=== PATIENT | female | born 1990 | race Caucasian/White ===

== ENCOUNTER 2016-10-15 11:10 | Inpatient (IN) | payer BC ==
[~2016-10-15] VITALS: Ht 162.6 cm; Wt 70.0 kg
[2016-10-15 16:28] VITALS: BP 110/57; RESP 18
[2016-10-15 19:56] VITALS: BP 113/59; RESP 20
[2016-10-15] MEDS ORDERED: CEFTRIAXONE 1 GM/50 ML (PMX) 50 ML IVPB SCH (20:30)
[2016-10-15] MEDS: DEXTROSE 5%-0.9% NACL 1,000 ML IV SCH (21:39)
[2016-10-15] MEDS: ONDANSETRON 4 MG INJ IV PRN (23:32)
[2016-10-15] MEDS: LEVOFLOXACIN 500MG/D5W (PMX) 100 ML IVPB SCH (23:32)
[2016-10-15] MEDS: ACETAMINOPHEN 325 MG TAB PO PRN (23:32)
--- NOTE | 2016-10-16 00:04 | RADRPT ---
PROCEDURE: MRCP. CLINICAL INDICATION: Abdominal pain, gallstone. TECHNIQUE: An MRCP was performed without intravenous contrast. Multiplanar multi sequence imaging was performed on a 3.0 Elidia MRI scanner. MIP reformats of the biliary tree were generated. COMPARISON: None. FINDINGS: The gallbladder is filled with gallstones. No gallbladder wall thickening or pericholecystic inflam mation is identified. There is no intrahepatic biliary ductal dilatation. The common bile duct is borderline dilated (6 mm). A 4 mm mildly T2 hypointense focus is seen within the distal most common bile duct, possibly an obstructing stone. The pancreatic duct is not dilated. The liver, spleen, adrenal glands, and kidneys are unremarkable. No ascites or lymphadenopathy is identified. IMPRESSION: 1. Gallstone filled gallbladder without evidence of cholecystitis. 2. Borderline dilated common bile duct (6 mm). A 4 mm mildly T2 hypointense focus within the dista l most common bile duct is nonspecific but might represent an obstructing biliary stone. This could be further evaluated with ERCP if clinically warranted. 3. No pancreatic ductal dilatation. RPTAT: HTAR .Daniel Mcclellan MD, Date Time Electronically viewed and signed by .Daniel Mcclellan MD, on 10/16/2016 00:03 .R/
[2016-10-16 02:58] VITALS: BP 97/52; RESP 19
[2016-10-16] MEDS ORDERED: CALC500T91 PO (05:08)
[2016-10-16] MEDS ORDERED: PRED2.5T3 PO (05:08)
[2016-10-16] MEDS ORDERED: HYDR200T5 PO (05:08)
[2016-10-16] MEDS ORDERED: IBUP200C PO (05:08)
[2016-10-16] MEDS ORDERED: enbrel (05:08)
[2016-10-16] MEDS: PANTOPRAZOLE 40 MG INJ IV SCH (05:35)
[2016-10-16 06:49] LABS: BASOPHILS % 0.5 % (0.0-2.0); EOSINOPHILS # 0.1 10^3/ul (0.0-0.5); EOSINOPHILS % 3.1 % (0.0-7.0); HEMATOCRIT 34.8 % (37.0-47.0); HEMOGLOBIN 11.3 g/dl (12.0-16.0); LYMPHOCYTES # 1.4 10^3/ul (0.8-2.9); LYMPHOCYTES % 35.8 % (15.0-51.0); MEAN CORPUSCULAR HEMOGLOBIN 30.1 pg (29.0-33.0); MEAN CORPUSCULAR HGB CONC 32.5 g/dl (32.0-37.0); MEAN CORPUSCULAR VOLUME 92.8 fl (82.0-101.0); MEAN PLATELET VOLUME 10.5 fl (7.4-10.4); MONOCYTE # 0.6 10^3/ul (0.3-0.9); MONOCYTES % 14.3 % (0.0-11.0); NEUTROPHIL # 1.8 10^3/ul (1.6-7.5); PLATELET COUNT 182 10^3/UL (140-415); RED BLOOD COUNT 3.75 10^6/ul (4.20-5.40); RED CELL DISTRIBUTION WIDTH 12.7 % (11.5-14.5); WHITE BLOOD COUNT 3.9 10^3/ul (4.8-10.8)
[2016-10-16 07:08] VITALS: BP 109/52; RESP 18
[2016-10-16 07:39] LABS: ALBUMIN 3.6 g/dl (3.3-4.9); ALBUMIN/GLOBULIN RATIO 1.05; BILIRUBIN,INDIRECT 1.2 mg/dl (0-1.1); BILIRUBIN,TOTAL 1.2 mg/dl (0.2-1.3); CALCIUM 8.3 mg/dl (8.4-10.2); CREATININE 0.67 mg/dl (0.44-1.00); POTASSIUM 4.2 mmol/L (3.5-5.1)
[2016-10-16] MEDS: HYDROXYCHLOROQUINE 200 MG TAB PO SCH ×2 (09:00→10:01)
[2016-10-16] MEDS: predniSONE 2.5 MG TAB PO SCH ×2 (09:00→10:01)
[2016-10-16] MEDS: DEXTROSE 5%-0.9% NACL 1,000 ML IV SCH ×2 (10:48→17:55)
--- NOTE | 2016-10-16 11:02 | CONS ---
Date/Time of Note Date/Time of Note DATE: 10/16/16 TIME: 10:26 Assessment/Plan Assessment/Plan Chief Complaint/Hosp Course 1. Cholelithiasis without cholecystitis: elevated LFT's -lap ad 2. Possible choledocholithiasis: MRI: A 4 mm mildly T2 hypointense focus within the distal most common bile duct is nonspecific but might represent an obstructing biliary stone -ercp 3. Abdominal pain: 2/2 above -pain management -as above 4. Transaminitis 2/2 above -as above 5. Overweight: BMI: 27 -lifestyle/diet modification 6. Hypocalcemia: -replete and monitor 7. Normocytic anemia: no acute bleed noted -monitor and transfuse as needed 8. Rheumatoid arthritis -cont meds Patient seen and examined in collaboration with Dr. Aaron White. Problems: Consultation Date/Type/Reason Admit Date/Time Oct 15, 2016 at 16:23 Date of Consultation: Oct 16, 2016 Type of Consultation: surgical Reason for Consultation cholelithiasis Hx of Present Illness Karin Her is a 26 yo woman who was transferred from [place]. She presents with complaints of sharp right upper quadrant pain. The pain is constant radiating to the back. Associated symptoms include nausea/vomiting multiple times, yellow/green emesis and subjective fevers. Denies hematemesis, chills. She states that she has had similar pain for the past 2 years, a few times yearly. This episode however was extremely painful and she decided to seek emergency help. MRI and ultrasound show gallstone filled gallbladder without evidence of cholecystitis. General surgery was called to evaluate. Constitutional: febrile Eyes: No visual change ENT: No bleeding Respiratory: No cough, No shortness of breath Cardiovascular: No chest pain Gastrointestinal: constipation, nausea, pain, vomiting Genitourinary: No bleeding, No hematuria Musculoskeletal: No back pain Skin: skin lesions Neurologic: No confusion, No headache, No seizure Psychological: No confusion Immunologic: No pruritis, No urticaria Past Medical History 1. Overweight 2. Rheumatoid Arthritis 3.Raynaud's syndrome 4. Cholelithiasis 5. shingles Past Surgical History Past Surgical Hx: no surgical history Family History Significant Family History: no pertinent family hx Social History Alcohol Use: occasionally Smoking Status: Never smoker Drug Use: none Exam/Review of Systems Vital Signs Vitals Vital Signs Date Time Temp Pulse Resp B/P Pulse Ox O2 Delivery O2 Flow Rate FiO2 10/16/16 07:08 98.4 73 18 109/52 100 Intake and Output 10/15/16 10/15/16 10/16/16 15:00 23:00 07:00 Intake Total 300 ml Balance 300 ml Exam Constitutional: alert, oriented Psych: nl mood/affect Head: atraumatic, normocephalic ENMT: mucosa pink and moist Neck: non-tender, supple Respiratory: normal air movement Cardiovascular: nl pulses, regular rate and rhythm Gastrointestinal: bowel sounds (x4), distended (min), rebound or guarding (min) , tender Genitourinary - Female: No CVA tenderness Musculoskeletal: nl gait and stance Extremities: normal pulses, No edema Neurological: nl mental status, nl speech, nl strength Skin: No rash or lesions Results Result Diagram: 10/16/1651910/16/16 0520 Results 24 hrs Laboratory Tests Test 10/16/16 05:20 White Blood Count 3.9 L Red Blood Count 3.75 L Hemoglobin 11.3 L Hematocrit 34.8 L Mean Corpuscular Volume 92.8 Mean Corpuscular Hemoglobin 30.1 Mean Corpuscular Hemoglobin Concent 32.5 Red Cell Distribution Width 12.7 Platelet Count 182 Mean Platelet Volume 10.5 H Neutrophils % 46.0 Lymphocytes % 35.8 Monocytes % 14.3 H Eosinophils % 3.1 Basophils % 0.5 Nucleated Red Blood Cells % 0.0 Neutrophils # 1.8 Lymphocytes # 1.4 Monocytes # 0.6 Eosinophils # 0.1 Basophils # 0.0 Nucleated Red Blood Cells # 0.0 Sodium Level 142 Potassium Level 4.2 Chloride Level 105 Carbon Dioxide Level 25 Anion Gap 16 Blood Urea Nitrogen 7 Creatinine 0.67 Glucose Level 82 Calcium Level 8.3 L Total Bilirubin 1.2 Direct Bilirubin 0.00 Indirect Bilirubin 1.2 H Aspartate Amino Transf (AST/SGOT) 80 H Alanine Aminotransferase (ALT/SGPT) 130 H Alkaline Phosphatase 67 Total Protein 7.0 Albumin 3.6 Globulin 3.40 H Albumin/Globulin Ratio 1.05 Medications Medications Current Medications Dextrose/Sodium Chloride (D5-NS) 1,000 ml @ 70 mls/hr [id number] IV Last administered on 10/15/16t 21:39; Admin Dose 70 MLS/HR; Start 10/15/16 at 20:30 Pantoprazole (Protonix Iv) 40 mg DAILY@06 IV Last administered on 10/16/16 05: 35; Admin Dose 40 MG; Start 10/16/16 at 06:00 Ondansetron HCl (Zofran Inj) 4 mg Q4H PRN IV NAUSEA AND/OR VOMITING Last administered on 10/15/16 23:32; Admin Dose 4 MG; Start 10/15/16 at 20:30 Morphine Sulfate (morphine) 2 mg Q4H PRN IV PAIN; Start 10/15/16 at 20:30 Acetaminophen (Tylenol Tab) 650 mg Q6H PRN PO PAIN AND OR ELEVATED TEMP Last administered on 10/15/16 23:32; Admin Dose 650 MG; Start 10/15/16 at 20:30 Prednisone (Prednisone) 2.5 mg DAILY PO Last administered on 10/16/16 10:01; Admin Dose 2.5 MG; Start 10/16/16 at 09:00 Hydroxychloroquine Sulfate 200 mg 200 mg DAILY PO Last administered on 10:01; Admin Dose 200 MG; Start 10/16/16 at 09:00 Levofloxacin/ Dextrose (Levaquin 500mg/ D5W 100 ml (Pmx)) 100 ml @ 100 mls/hr Q24H IVPB Last administered on 10/15/16 23:32; Admin Dose 100 MLS/HR; Start at 22:30 YUSEF SHAVER NP Oct 16, 2016 10:36
--- NOTE | 2016-10-16 13:37 | QN ---
Documentation Comment [id number] PEARL SEAMAN MD Oct 16, 2016 13:37
[2016-10-16 14:02] VITALS: BP 97/55; RESP 18
[2016-10-16 15:19] LABS: INR 1.07; PROTIME 13.9 Sec (12.2-14.2); PT RATIO 1.1
--- NOTE | 2016-10-16 18:17 | CONS ---
Date/Time of Note Date/Time of Note DATE: 10/16/16 TIME: 18:14 Assessment/Plan Assessment/Plan Additional Assessment/Plan 1. Bile duct stone 2. Abdominal pain secondary to bile duct stone 3. Abnormal LFT 4. Mild anemia 5. Rheumatoid arthritis Plan IV fluid Pain management IV antibiotic ERCP when GI lab can accommodate. Consultation Date/Type/Reason Admit Date/Time Oct 15, 2016 at 16:23 Reason for Consultation Bile duct stone and abdominal pain Hx of Present Illness 86-year-old female [facility] pain confined to the right upper quadrant associated with nausea and vomiting. No GI bleeding no chest pain no shortness of breath no fever no chills. Patient was originally at [facility] emergency room that she was stabilized. Patient was subsequently transferred to [facility]. She had MRI done which showed 4 7 mm stone in the bile duct so GI consult was called and patient also had abnormal LFT and continues to have pain in the right upper quadrant. There was no evidence of acute cholecystitis at this point Constitutional: febrile Eyes: No visual change ENT: No bleeding Respiratory: No cough, No shortness of breath Cardiovascular: No chest pain Gastrointestinal: constipation, nausea, pain, vomiting Genitourinary: No bleeding, No hematuria Musculoskeletal: No back pain Skin: skin lesions Neurologic: No confusion, No headache, No seizure Psychological: nl mood/affect Immunologic: No pruritis, No urticaria Past Surgical History Past Surgical Hx: no surgical history Social History Alcohol Use: occasionally Smoking Status: Never smoker Drug Use: none Exam/Review of Systems Vital Signs Vitals Vital Signs Date Time Temp Pulse Resp B/P Pulse Ox O2 Delivery O2 Flow Rate FiO2 10/16/16 14:02 98.6 78 18 97/55 100 Intake and Output 10/15/16 10/15/16 10/16/16 15:00 23:00 07:00 Intake Total 300 ml Balance 300 ml Exam Constitutional: alert, oriented, well developed Psych: nl mood/affect, no complaints Head: atraumatic, normocephalic Eyes: EOMI, PERRL, nl conjunctiva, nl lids, nl sclera ENMT: nl external ears & nose, nl lips & teeth, nl nasal mucosa & septum Neck: non-tender, supple Respiratory: clear to auscultation, normal air movement Cardiovascular: nl pulses, regular rate and rhythm Gastrointestinal: nl liver, spleen, non-tender, soft Musculoskeletal: nl extremities to inspection, nl gait and stance Extremities: normal pulses Neurological: [employer] II-XII intact, nl mental status, nl speech, nl strength Skin: nl turgor, No rash or lesions Lymph: nl lymph nodes Results Result Diagram: 10/16/1620 10/16/16 0520 Results 24 hrs Laboratory Tests Test 10/16/16 05:20 10/16/16 13:57 White Blood Count 3.9 L Red Blood Count 3.75 L Hemoglobin 11.3 L Hematocrit 34.8 L Mean Corpuscular Volume 92.8 Mean Corpuscular Hemoglobin 30.1 Mean Corpuscular Hemoglobin Concent 32.5 Red Cell Distribution Width 12.7 Platelet Count 182 Mean Platelet Volume 10.5 H Neutrophils % 46.0 Lymphocytes % 35.8 Monocytes % 14.3 H Eosinophils % 3.1 Basophils % 0.5 Nucleated Red Blood Cells % 0.0 Neutrophils # 1.8 Lymphocytes # 1.4 Monocytes # 0.6 Eosinophils # 0.1 Basophils # 0.0 Nucleated Red Blood Cells # 0.0 Sodium Level 142 Potassium Level 4.2 Chloride Level 105 Carbon Dioxide Level 25 Anion Gap 16 Blood Urea Nitrogen 7 Creatinine 0.67 Glucose Level 82 Calcium Level 8.3 L Total Bilirubin 1.2 Direct Bilirubin 0.00 Indirect Bilirubin 1.2 H Aspartate Amino Transf (AST/SGOT) 80 H Alanine Aminotransferase (ALT/SGPT) 130 H Alkaline Phosphatase 67 Total Protein 7.0 Albumin 3.6 Globulin 3.40 H Albumin/Globulin Ratio 1.05 Prothrombin Time 13.9 Prothrombin Time Ratio 1.1 INR International Normalized Ratio 1.07 Medications Medications Current Medications Dextrose/Sodium Chloride (D5-NS) 1,000 ml @ 70 mls/hr [id number] IV Last administered on 10/16/16 17:55; Admin Dose 70 MLS/HR; Start 10/15/16 at 20:30 Pantoprazole (Protonix Iv) 40 mg DAILY@06 IV Last administered on 10/16/16 05: 35; Admin Dose 40 MG; Start 10/16/16 at 06:00 Ondansetron HCl (Zofran Inj) 4 mg Q4H PRN IV NAUSEA AND/OR VOMITING Last administered on 10/15/16 23:32; Admin Dose 4 MG; Start 10/15/16 at 20:30 Morphine Sulfate (morphine) 2 mg Q4H PRN IV PAIN; Start 10/15/16 at 20:30 Acetaminophen (Tylenol Tab) 650 mg Q6H PRN PO PAIN AND OR ELEVATED TEMP Last administered on 10/15/16 23:32; Admin Dose 650 MG; Start 10/15/16 at 20:30 Prednisone (Prednisone) 2.5 mg DAILY PO Last administered on 10/16/16 10:01; Admin Dose 2.5 MG; Start 10/16/16 at 09:00 Hydroxychloroquine Sulfate 200 mg 200 mg DAILY PO Last administered on 10:01; Admin Dose 200 MG; Start 10/16/16 at 09:00 Levofloxacin/ Dextrose (Levaquin 500mg/ D5W 100 ml (Pmx)) 100 ml @ 100 mls/hr Q24H IVPB Last administered on 10/15/16 23:32; Admin Dose 100 MLS/HR; Start at 22:30 MAGALY VINSON MD Oct 16, 2016 18:17
[2016-10-16 19:39] VITALS: BP 113/63; RESP 20
[2016-10-16] MEDS: LEVOFLOXACIN 500MG/D5W (PMX) 100 ML IVPB SCH (22:37)
[2016-10-17] VITALS (16 sets, daily range): BP systolic 90–140; BP diastolic 46–82; PULSE 54–64; RESP 16–20
[2016-10-17] MEDS: DEXTROSE 5%-0.9% NACL 1,000 ML IV SCH ×2 (01:06→15:24)
[2016-10-17] MEDS: PANTOPRAZOLE 40 MG INJ IV SCH (05:52)
[2016-10-17 06:43] LABS: BASOPHILS % 0.6 % (0.0-2.0); EOSINOPHILS # 0.1 10^3/ul (0.0-0.5); HEMATOCRIT 33.8 % (37.0-47.0); HEMOGLOBIN 11.2 g/dl (12.0-16.0); LYMPHOCYTES # 1.4 10^3/ul (0.8-2.9); MEAN CORPUSCULAR HEMOGLOBIN 30.4 pg (29.0-33.0); MEAN CORPUSCULAR HGB CONC 33.1 g/dl (32.0-37.0); MEAN CORPUSCULAR VOLUME 91.8 fl (82.0-101.0); MEAN PLATELET VOLUME 10.3 fl (7.4-10.4); MONOCYTE # 0.5 10^3/ul (0.3-0.9); MONOCYTES % 14.4 % (0.0-11.0); NEUTROPHIL # 1.4 10^3/ul (1.6-7.5); PLATELET COUNT 197 10^3/UL (140-415); RED BLOOD COUNT 3.68 10^6/ul (4.20-5.40); RED CELL DISTRIBUTION WIDTH 12.5 % (11.5-14.5); WHITE BLOOD COUNT 3.3 10^3/ul (4.8-10.8)
[2016-10-17 06:53] LABS: ALBUMIN 3.6 g/dl (3.3-4.9); CALCIUM 8.4 mg/dl (8.4-10.2); CREATININE 0.73 mg/dl (0.44-1.00); POTASSIUM 3.9 mmol/L (3.5-5.1); TOTAL PROTEIN 7.2 g/dl (6.1-8.1)
[2016-10-17] MEDS: HYDROXYCHLOROQUINE 200 MG TAB PO SCH (09:00)
[2016-10-17] MEDS: predniSONE 2.5 MG TAB PO SCH (09:00)
[2016-10-17] MEDS: ONDANSETRON 4 MG INJ IV PRN (09:47)
[2016-10-17] MEDS: morphine 2 MG INJ IV PRN ×2 (09:47→21:52)
--- NOTE | 2016-10-17 10:53 | PN ---
Date/Time of Note Date/Time of Note DATE: 10/17/16 TIME: 10:51 Assessment/Plan VTE Prophylaxis VTE Prophylaxis Intervention: ambulation Lines/Catheters IV Catheter Type (from Nrs): Peripheral IV Assessment/Plan Chief Complaint/Hosp Course 1. Cholelithiasis 2. choledocholithiasis 3. Anemia 4. hx rheumatoid arthritis Problems: Assessment/Plan 1.Continue Iv fluids 2. ERCP Subjective 24 Hr Interval Summary Gastrointestinal: pain Exam/Review of Systems Vital Signs Vitals Vital Signs Date Time Temp Pulse Resp B/P Pulse Ox O2 Delivery O2 Flow Rate FiO2 10/17/16 07:54 98.4 74 16 90/46 100 Intake and Output 10/16/16 10/16/16 10/17/16 15:00 23:00 07:00 Intake Total 800 ml 1160 ml Balance 800 ml 1160 ml Exam Constitutional: oriented Gastrointestinal: rebound or guarding, soft Results Result Diagram: 10/17/16 0516 10/17/16 0516 Results 24 hrs Laboratory Tests Test 10/16/16 13:57 10/17/16 05:16 Prothrombin Time 13.9 Prothrombin Time Ratio 1.1 INR International Normalized Ratio 1.07 White Blood Count 3.3 L Red Blood Count 3.68 L Hemoglobin 11.2 L Hematocrit 33.8 L Mean Corpuscular Volume 91.8 Mean Corpuscular Hemoglobin 30.4 Mean Corpuscular Hemoglobin Concent 33.1 Red Cell Distribution Width 12.5 Platelet Count 197 Mean Platelet Volume 10.3 Neutrophils % 41.0 Lymphocytes % 41.0 Monocytes % 14.4 H Eosinophils % 3.0 Basophils % 0.6 Nucleated Red Blood Cells % 0.0 Neutrophils # 1.4 L Lymphocytes # 1.4 Monocytes # 0.5 Eosinophils # 0.1 Basophils # 0.0 Nucleated Red Blood Cells # 0.0 Sodium Level 142 Potassium Level 3.9 Chloride Level 106 Carbon Dioxide Level 26 Anion Gap 14 Blood Urea Nitrogen 9 Creatinine 0.73 Glucose Level 86 Calcium Level 8.4 Total Bilirubin 1.0 Direct Bilirubin 0.00 Indirect Bilirubin 1.0 Aspartate Amino Transf (AST/SGOT) 41 Alanine Aminotransferase (ALT/SGPT) 95 H Alkaline Phosphatase 56 Total Protein 7.2 Albumin 3.6 Globulin 3.60 H Albumin/Globulin Ratio 1.00 Medications Medications Current Medications Dextrose/Sodium Chloride (D5-NS) 1,000 ml @ 70 mls/hr [id number] IV Last administered on 10/16/16 17:55; Admin Dose 70 MLS/HR; Start 10/15/16 at 20:30 Pantoprazole (Protonix Iv) 40 mg DAILY@06 IV Last administered on 10/17/16 05: 52; Admin Dose 40 MG; Start 10/16/16 at 06:00 Ondansetron HCl (Zofran Inj) 4 mg Q4H PRN IV NAUSEA AND/OR VOMITING Last administered on 10/17/16 09:47; Admin Dose 4 MG; Start 10/15/16 at 20:30 Morphine Sulfate (morphine) 2 mg Q4H PRN IV PAIN Last administered on 09:47; Admin Dose 2 MG; Start 10/15/16 at 20:30 Acetaminophen (Tylenol Tab) 650 mg Q6H PRN PO PAIN AND OR ELEVATED TEMP Last administered on 10/15/16 23:32; Admin Dose 650 MG; Start 10/15/16 at 20:30 Prednisone (Prednisone) 2.5 mg DAILY PO Last administered on 10/16/16 10:01; Admin Dose 2.5 MG; Start 10/16/16 at 09:00 Hydroxychloroquine Sulfate 200 mg 200 mg DAILY PO Last administered on 10:01; Admin Dose 200 MG; Start 10/16/16 at 09:00 Levofloxacin/ Dextrose (Levaquin 500mg/ D5W 100 ml (Pmx)) 100 ml @ 100 mls/hr Q24H IVPB Last administered on 10/16/16 22:37; Admin Dose 100 MLS/HR; Start at 22:30 CECILIA GONGORA Oct 17, 2016 10:53
--- NOTE | 2016-10-17 11:06 | PN ---
Date/Time of Note Date/Time of Note DATE: 10/17/16 TIME: 11:02 Assessment/Plan Lines/Catheters IV Catheter Type (from [facility]): Peripheral IV Assessment/Plan Chief Complaint/Hosp Course 1. Cholelithiasis without cholecystitis: elevated LFT's -lap ad 2. Possible choledocholithiasis: MRI: A 4 mm mildly T2 hypointense focus within the distal most common bile duct is nonspecific but might represent an obstructing biliary stone -ercp pending 3. Abdominal pain: 2/2 above; improving -pain management -as above 4. Transaminitis 2/2 above; improving -as above 5. Overweight: BMI: 27 -lifestyle/diet modification 6. Hypocalcemia: normalized -replete and monitor 7. Normocytic anemia: no acute bleed noted -monitor and transfuse as needed 8. Rheumatoid arthritis -cont meds Patient seen and examined in collaboration with Dr. Aaron White. Problems: Subjective 24 Hr Interval Summary Abdominal pain better. No n/v/d. No c/o stevens, fevers, chills, sob, cp, palpitations. Pending ERCP Exam/Review of Systems Vital Signs Vitals Vital Signs Date Time Temp Pulse Resp B/P Pulse Ox O2 Delivery O2 Flow Rate FiO2 10/17/16 07:54 98.4 74 16 90/46 100 Intake and Output 10/16/16 10/16/16 10/17/16 15:00 23:00 07:00 Intake Total 800 ml 1160 ml Balance 800 ml 1160 ml Exam Free Text/Dictation Constitutional: alert, oriented Psych: nl mood/affect Head: atraumatic, normocephalic ENMT: mucosa pink and moist Neck: non-tender, supple Respiratory: normal air movement Cardiovascular: nl pulses, regular rate and rhythm Gastrointestinal: bowel sounds (x4), distended (min), rebound or guarding (min) , tender Genitourinary - Female: No CVA tenderness Musculoskeletal: nl gait and stance Extremities: normal pulses, No edema Neurological: nl mental status, nl speech, nl strength Skin: No rash or lesions Results Result Diagram: 10/17/16 0516 10/17/16 0516 YUSEF SHAVER NP Oct 17, 2016 11:06
[2016-10-17] MEDS ORDERED: IOHEXOL 300MG/ML 30 ML BTL ONE (18:52)
[2016-10-17] MEDS ORDERED: MIDAZOLAM 1 MG/ML 2 ML INJ ONE (18:57)
--- NOTE | 2016-10-17 19:52 | OPR ---
Date/Time of Note Date/Time of Note DATE: 10/17/16 TIME: 19:51 Operative Report Preoperative Diagnosis Bile duct stone Postoperative Diagnosis Bile ducts stone Operation/Procedure Performed Sphincterotomy balloon sweeping and excellent drainage established Surgeon: MAGALY VINSON MD Estimated Blood Loss: none Complications: None MAGALY VINSON MD Oct 17, 2016 19:52
[2016-10-17] MEDS ORDERED: ONDANSETRON 4 MG INJ ONE (19:59)
[2016-10-17] MEDS ORDERED: LIDOCAINE 2% (SDV) 5 ML INJ ONE (19:59)
[2016-10-17] MEDS ORDERED: NEOSTIGMINE 3 MG/3 ML SYRINGE ONE (19:59)
[2016-10-17] MEDS ORDERED: GLYCOPYRROLATE 0.4 MG INJ ONE (19:59)
[2016-10-17] MEDS ORDERED: ROCURONIUM 50 MG INJ ONE (19:59)
[2016-10-17] MEDS ORDERED: PROPOFOL 20 ML ONE (19:59)
[2016-10-17] MEDS ORDERED: CIPROFLOXACIN 400MG/D5W 200 ML ONE (19:59)
[2016-10-17] MEDS: LEVOFLOXACIN 500MG/D5W (PMX) 100 ML IVPB SCH (22:15)
[2016-10-18] MEDS: DEXTROSE 5%-0.9% NACL 1,000 ML IV SCH ×3 (01:43→20:00)
[2016-10-18 02:41] VITALS: BP 122/75; RESP 18
[2016-10-18] MEDS: PANTOPRAZOLE 40 MG INJ IV SCH (05:55)
[2016-10-18 06:05] LABS: BASOPHILS % 0.2 % (0.0-2.0); HEMOGLOBIN 11.2 g/dl (12.0-16.0); LYMPHOCYTES # 1.1 10^3/ul (0.8-2.9); LYMPHOCYTES % 25.9 % (15.0-51.0); MEAN CORPUSCULAR HEMOGLOBIN 29.6 pg (29.0-33.0); MEAN CORPUSCULAR HGB CONC 32.9 g/dl (32.0-37.0); MEAN CORPUSCULAR VOLUME 89.7 fl (82.0-101.0); MEAN PLATELET VOLUME 10.3 fl (7.4-10.4); MONOCYTE # 0.4 10^3/ul (0.3-0.9); MONOCYTES % 9.9 % (0.0-11.0); NEUTROPHIL # 2.6 10^3/ul (1.6-7.5); PLATELET COUNT 168 10^3/UL (140-415); RED BLOOD COUNT 3.79 10^6/ul (4.20-5.40); RED CELL DISTRIBUTION WIDTH 12.4 % (11.5-14.5); WHITE BLOOD COUNT 4.1 10^3/ul (4.8-10.8)
[2016-10-18 06:32] LABS: CALCIUM 8.6 mg/dl (8.4-10.2); CREATININE 0.72 mg/dl (0.44-1.00); POTASSIUM 4.5 mmol/L (3.5-5.1)
[2016-10-18 07:57] VITALS: BP 93/46; RESP 20
[2016-10-18 08:38] LABS: ALBUMIN 3.1 g/dl (3.3-4.9); BILIRUBIN,INDIRECT 0.1 mg/dl (0-1.1); BILIRUBIN,TOTAL 0.1 mg/dl (0.2-1.3); TOTAL PROTEIN 5.7 g/dl (6.1-8.1)
[2016-10-18] MEDS: HYDROXYCHLOROQUINE 200 MG TAB PO SCH (09:20)
[2016-10-18] MEDS: predniSONE 2.5 MG TAB PO SCH (09:20)
--- NOTE | 2016-10-18 10:09 | PN ---
Date/Time of Note Date/Time of Note DATE: 10/18/16 TIME: 10:08 Assessment/Plan VTE Prophylaxis VTE Prophylaxis Intervention: ambulation Lines/Catheters IV Catheter Type (from Nrs): Peripheral IV Assessment/Plan Chief Complaint/Hosp Course 1. Cholelithiasis 2. choledocholithiasis, s/p Sphincterotomy 3. Anemia 4. hx rheumatoid arthritis Problems: Assessment/Plan 1. Continue current regime 2. Ambulation Subjective 24 Hr Interval Summary Gastrointestinal: pain Exam/Review of Systems Vital Signs Vitals Vital Signs Date Time Temp Pulse Resp B/P Pulse Ox O2 Delivery O2 Flow Rate FiO2 10/18/16 07:57 98.5 80 20 93/46 100 10/17/16 22:10 Nasal Cannula 2.0 Intake and Output 10/17/16 10/17/16 10/18/16 15:00 23:00 07:00 Intake Total 300 ml 450 ml Balance 300 ml 450 ml Exam Constitutional: alert, oriented Cardiovascular: regular rate and rhythm Gastrointestinal: rebound or guarding Results Result Diagram: 10/18/16 0539 10/18/16 0539 Results 24 hrs Laboratory Tests Test 10/18/16 05:39 White Blood Count 4.1 #L Red Blood Count 3.79 L Hemoglobin 11.2 L Hematocrit 34.0 L Mean Corpuscular Volume 89.7 Mean Corpuscular Hemoglobin 29.6 Mean Corpuscular Hemoglobin Concent 32.9 Red Cell Distribution Width 12.4 Platelet Count 168 Mean Platelet Volume 10.3 Neutrophils % 63.0 Lymphocytes % 25.9 Monocytes % 9.9 Eosinophils % 1.0 Basophils % 0.2 Nucleated Red Blood Cells % 0.0 Neutrophils # 2.6 Lymphocytes # 1.1 Monocytes # 0.4 Eosinophils # 0.0 Basophils # 0.0 Nucleated Red Blood Cells # 0.0 Sodium Level 142 Potassium Level 4.5 Chloride Level 103 Carbon Dioxide Level 28 Anion Gap 16 Blood Urea Nitrogen 9 Creatinine 0.72 Glucose Level 104 Calcium Level 8.6 Total Bilirubin 0.1 L Direct Bilirubin 0.00 Indirect Bilirubin 0.1 Aspartate Amino Transf (AST/SGOT) 18 Alanine Aminotransferase (ALT/SGPT) 30 Alkaline Phosphatase 42 Total Protein 5.7 #L Albumin 3.1 L Medications Medications Current Medications Dextrose/Sodium Chloride (D5-NS) 1,000 ml @ 70 mls/hr [id number] IV Last administered on 10/18/16 01:43; Admin Dose 70 MLS/HR; Start 10/15/16 at 20:30 Pantoprazole (Protonix Iv) 40 mg DAILY@06 IV Last administered on 10/18/16 05: 55; Admin Dose 40 MG; Start 10/16/16 at 06:00 Ondansetron HCl (Zofran Inj) 4 mg Q4H PRN IV NAUSEA AND/OR VOMITING Last administered on 10/17/16 09:47; Admin Dose 4 MG; Start 10/15/16 at 20:30 Morphine Sulfate (morphine) 2 mg Q4H PRN IV PAIN Last administered on 21:52; Admin Dose 2 MG; Start 10/15/16 at 20:30 Acetaminophen (Tylenol Tab) 650 mg Q6H PRN PO PAIN AND OR ELEVATED TEMP Last administered on 10/15/16 23:32; Admin Dose 650 MG; Start 10/15/16 at 20:30 Prednisone (Prednisone) 2.5 mg DAILY PO Last administered on 10/18/16 09:20; Admin Dose 2.5 MG; Start 10/16/16 at 09:00 Hydroxychloroquine Sulfate 200 mg 200 mg DAILY PO Last administered on 09:20; Admin Dose 200 MG; Start 10/16/16 at 09:00 Levofloxacin/ Dextrose (Levaquin 500mg/ D5W 100 ml (Pmx)) 100 ml @ 100 mls/hr Q24H IVPB Last administered on 10/17/16 22:15; Admin Dose 100 MLS/HR; Start at 22:30 CECILIA GONGORA Oct 18, 2016 10:09
--- NOTE | 2016-10-18 10:13 | PN ---
Date/Time of Note Date/Time of Note DATE: 10/18/16 TIME: 10:01 Assessment/Plan Lines/Catheters IV Catheter Type (from [facility]): Peripheral IV Assessment/Plan Chief Complaint/Hosp Course 1. Cholelithiasis without cholecystitis; patient asymptomatic currently and would prefer to do procedure outpatient -lap ad outpatient -may be dc'd per medical team 2. Choledocholithiasis: s/p ERCP with sphincterotomy 10/17; pain improved 3. Abdominal pain: 2/2 above; improving -pain management -as above 4. Transaminitis 2/2 above; improving -as above 5. Overweight: BMI: 27 -lifestyle/diet modification 6. Hypocalcemia: normalized -replete and monitor 7. Normocytic anemia: no acute bleed noted -monitor and transfuse as needed 8. Rheumatoid arthritis -cont meds Patient seen and examined in collaboration with Dr. Aaron White. Problems: Subjective 24 Hr Interval Summary No fevers. Feels better. s/p ERCP w sphincterotomy yesterday. Tolerating liquid diet. Min abdominal discomfort. No stevens, dizziness, cp, palpitations, n/v/d, fevers, chills, dysuria. Exam/Review of Systems Vital Signs Vitals Vital Signs Date Time Temp Pulse Resp B/P Pulse Ox O2 Delivery O2 Flow Rate FiO2 10/18/16 07:57 98.5 80 20 93/46 100 10/17/16 22:10 Nasal Cannula 2.0 Intake and Output 10/17/16 10/17/16 10/18/16 15:00 23:00 07:00 Intake Total 300 ml 450 ml Balance 300 ml 450 ml Exam Free Text/Dictation Constitutional: alert, oriented Psych: nl mood/affect Head: atraumatic, normocephalic ENMT: mucosa pink and moist Neck: non-tender, supple Respiratory: normal air movement Cardiovascular: nl pulses, regular rate and rhythm Gastrointestinal: bowel sounds (x4), distended (min), no rebound or guarding, min tender Genitourinary - Female: No CVA tenderness Musculoskeletal: nl gait and stance Extremities: normal pulses, No edema Neurological: nl mental status, nl speech, nl strength Skin: No rash or lesions Results Result Diagram: 10/18/16 0539 10/18/16 0539 YUSEF SHAVER NP Oct 18, 2016 10:11
[2016-10-18] MEDS ORDERED: BISACODYL (EC) 5 MG TAB PO ONE (11:30)
--- NOTE | 2016-10-18 12:19 | CONS ---
Date/Time of Note Date/Time of Note DATE: 10/18/16 TIME: 12:18 Assessment/Plan Assessment/Plan Chief Complaint/Hosp Course 86-year-old female [facility] abdominal pain confined to the right upper quadrant associated with nausea and vomiting. No GI bleeding no chest pain no shortness of breath no fever no chills. Patient was originally at [facility] emergency room that she was stabilized. Patient was subsequently transferred to [facility]. She had MRI done which showed 4 7 mm stone in the bile duct so GI consult was called and patient also had abnormal LFT and continues to have pain in the right upper quadrant. There was no evidence of acute cholecystitis at this point Problems: Additional Assessment/Plan Additional Assessment/Plan 1. Bile duct stone 2. Abdominal pain secondary to bile duct stone 3. Abnormal LFT 4. Mild anemia 5. Rheumatoid arthritis 6. Status post sphincterotomy with excellent drainage Plan Advance diet Surgery lap ad as per surgeon. Patient definitely has a cholecystitis based on my ERCP finding cystic duct was completely blocked Consultation Date/Type/Reason Admit Date/Time Oct 15, 2016 at 16:23 Initial Consult Date 10/16/16 Type of Consultation: surgical 24 HR Interval Summary Constitutional: improved Exam/Review of Systems Vital Signs Vitals Vital Signs Date Time Temp Pulse Resp B/P Pulse Ox O2 Delivery O2 Flow Rate FiO2 10/18/16 07:57 98.5 80 20 93/46 100 10/17/16 22:10 Nasal Cannula 2.0 Intake and Output 10/17/16 10/17/16 10/18/16 15:00 23:00 07:00 Intake Total 300 ml 450 ml Balance 300 ml 450 ml Exam Constitutional: alert, oriented, well developed Psych: nl mood/affect, no complaints Head: atraumatic, normocephalic Eyes: EOMI, PERRL, nl conjunctiva, nl lids, nl sclera ENMT: nl external ears & nose, nl lips & teeth, nl nasal mucosa & septum Neck: non-tender, supple Respiratory: clear to auscultation, normal air movement Cardiovascular: nl pulses, regular rate and rhythm Gastrointestinal: nl liver, spleen, non-tender, soft Musculoskeletal: nl extremities to inspection, nl gait and stance Extremities: normal pulses 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, nl mental status, nl speech, nl strength Skin: nl turgor, No rash or lesions Lymph: nl lymph nodes Results Result Diagram: 10/18/16 0539 10/18/16 0539 Results 24 hrs Laboratory Tests Test 10/18/16 05:39 White Blood Count 4.1 #L Red Blood Count 3.79 L Hemoglobin 11.2 L Hematocrit 34.0 L Mean Corpuscular Volume 89.7 Mean Corpuscular Hemoglobin 29.6 Mean Corpuscular Hemoglobin Concent 32.9 Red Cell Distribution Width 12.4 Platelet Count 168 Mean Platelet Volume 10.3 Neutrophils % 63.0 Lymphocytes % 25.9 Monocytes % 9.9 Eosinophils % 1.0 Basophils % 0.2 Nucleated Red Blood Cells % 0.0 Neutrophils # 2.6 Lymphocytes # 1.1 Monocytes # 0.4 Eosinophils # 0.0 Basophils # 0.0 Nucleated Red Blood Cells # 0.0 Sodium Level 142 Potassium Level 4.5 Chloride Level 103 Carbon Dioxide Level 28 Anion Gap 16 Blood Urea Nitrogen 9 Creatinine 0.72 Glucose Level 104 Calcium Level 8.6 Total Bilirubin 0.1 L Direct Bilirubin 0.00 Indirect Bilirubin 0.1 Aspartate Amino Transf (AST/SGOT) 18 Alanine Aminotransferase (ALT/SGPT) 30 Alkaline Phosphatase 42 Total Protein 5.7 #L Albumin 3.1 L Medications Medications Current Medications Dextrose/Sodium Chloride (D5-NS) 1,000 ml @ 70 mls/hr [id number] IV Last administered on 10/18/16 01:43; Admin Dose 70 MLS/HR; Start 10/15/16 at 20:30 Pantoprazole (Protonix Iv) 40 mg DAILY@06 IV Last administered on 10/18/16 05: 55; Admin Dose 40 MG; Start 10/16/16 at 06:00 Ondansetron HCl (Zofran Inj) 4 mg Q4H PRN IV NAUSEA AND/OR VOMITING Last administered on 10/17/16 09:47; Admin Dose 4 MG; Start 10/15/16 at 20:30 Morphine Sulfate (morphine) 2 mg Q4H PRN IV PAIN Last administered on 21:52; Admin Dose 2 MG; Start 10/15/16 at 20:30 Acetaminophen (Tylenol Tab) 650 mg Q6H PRN PO PAIN AND OR ELEVATED TEMP Last administered on 10/15/16 23:32; Admin Dose 650 MG; Start 10/15/16 at 20:30 Prednisone (Prednisone) 2.5 mg DAILY PO Last administered on 10/18/16 09:20; Admin Dose 2.5 MG; Start 10/16/16 at 09:00 Hydroxychloroquine Sulfate 200 mg 200 mg DAILY PO Last administered on 09:20; Admin Dose 200 MG; Start 10/16/16 at 09:00 Levofloxacin/ Dextrose (Levaquin 500mg/ D5W 100 ml (Pmx)) 100 ml @ 100 mls/hr Q24H IVPB Last administered on 10/17/16 22:15; Admin Dose 100 MLS/HR; Start at 22:30 MAGALY VINSON MD Oct 18, 2016 12:19
[2016-10-18 14:00] VITALS: BP 106/57; RESP 16
[2016-10-18] MEDS: morphine 2 MG INJ IV PRN (18:39)
[2016-10-18] MEDS: ONDANSETRON 4 MG INJ IV PRN ×2 (18:42→22:17)
[2016-10-18 19:43] VITALS: BP 96/50; RESP 18
[2016-10-18] MEDS: ACETAMINOPHEN 325 MG TAB PO PRN (21:05)
[2016-10-18] MEDS: LEVOFLOXACIN 500MG/D5W (PMX) 100 ML IVPB SCH (22:17)
[2016-10-19 02:00] VITALS: BP 97/56; RESP 18
[2016-10-19] MEDS: PANTOPRAZOLE 40 MG INJ IV SCH (05:41)
[2016-10-19 06:11] LABS: BASOPHILS % 0.7 % (0.0-2.0); EOSINOPHILS # 0.1 10^3/ul (0.0-0.5); EOSINOPHILS % 3.2 % (0.0-7.0); HEMOGLOBIN 10.7 g/dl (12.0-16.0); LYMPHOCYTES # 1.5 10^3/ul (0.8-2.9); LYMPHOCYTES % 37.5 % (15.0-51.0); MEAN CORPUSCULAR HEMOGLOBIN 29.5 pg (29.0-33.0); MEAN CORPUSCULAR HGB CONC 32.4 g/dl (32.0-37.0); MEAN CORPUSCULAR VOLUME 90.9 fl (82.0-101.0); MEAN PLATELET VOLUME 10.5 fl (7.4-10.4); MONOCYTE # 0.6 10^3/ul (0.3-0.9); MONOCYTES % 14.3 % (0.0-11.0); NEUTROPHIL # 1.8 10^3/ul (1.6-7.5); NEUTROPHILS % 44.1 % (39.0-77.0); PLATELET COUNT 181 10^3/UL (140-415); RED BLOOD COUNT 3.63 10^6/ul (4.20-5.40); RED CELL DISTRIBUTION WIDTH 12.9 % (11.5-14.5); WHITE BLOOD COUNT 4.1 10^3/ul (4.8-10.8)
[2016-10-19 06:49] LABS: ALBUMIN 3.6 g/dl (3.3-4.9); ALBUMIN/GLOBULIN RATIO 1.02; BILIRUBIN,INDIRECT 0.9 mg/dl (0-1.1); BILIRUBIN,TOTAL 0.9 mg/dl (0.2-1.3); CALCIUM 8.3 mg/dl (8.4-10.2); CREATININE 0.68 mg/dl (0.44-1.00); POTASSIUM 3.8 mmol/L (3.5-5.1); TOTAL PROTEIN 7.1 g/dl (6.1-8.1)
[2016-10-19 07:32] VITALS: BP 105/51; RESP 18
[2016-10-19] MEDS: predniSONE 2.5 MG TAB PO SCH (09:29)
[2016-10-19] MEDS: HYDROXYCHLOROQUINE 200 MG TAB PO SCH (09:29)
[2016-10-19] MEDS: DEXTROSE 5%-0.9% NACL 1,000 ML IV SCH ×2 (10:18→12:52)
[2016-10-19] MEDS: morphine 2 MG INJ IV PRN (11:10)
--- NOTE | 2016-10-19 11:12 | PN ---
Date/Time of Note Date/Time of Note DATE: 10/19/16 TIME: 11:09 Assessment/Plan VTE Prophylaxis VTE Prophylaxis Intervention: ambulation Lines/Catheters IV Catheter Type (from Nrs): Peripheral IV Assessment/Plan Chief Complaint/Hosp Course 1. Cholelithiasis 2. choledocholithiasis, s/p Sphincterotomy 3. Anemia 4. hx rheumatoid arthritis Problems: Assessment/Plan 1. Pt has abdominal pain after was started on regular diet, now back on full diet 2. Refused to go home, mother in law and pt insisting on surgery cholecystectomy to decrease abdominal pain. 3. Spoke to pt and answer all questions Subjective 24 Hr Interval Summary Gastrointestinal: decreased appetite, pain Exam/Review of Systems Vital Signs Vitals Vital Signs Date Time Temp Pulse Resp B/P Pulse Ox O2 Delivery O2 Flow Rate FiO2 10/19/16 07:32 98.1 81 18 105/51 100 10/17/16 22:10 Nasal Cannula 2.0 Intake and Output 10/18/16 10/18/16 10/19/16 14:59 22:59 06:59 Intake Total 2290 ml 1160 ml Balance 2290 ml 1160 ml Exam Constitutional: alert, oriented Neck: supple Respiratory: clear to auscultation Cardiovascular: regular rate and rhythm Gastrointestinal: rebound or guarding, soft Results Result Diagram: 10/19/16 0524 10/19/16 0524 Results 24 hrs Laboratory Tests Test 10/19/16 05:24 White Blood Count 4.1 L Red Blood Count 3.63 L Hemoglobin 10.7 L Hematocrit 33.0 L Mean Corpuscular Volume 90.9 Mean Corpuscular Hemoglobin 29.5 Mean Corpuscular Hemoglobin Concent 32.4 Red Cell Distribution Width 12.9 Platelet Count 181 Mean Platelet Volume 10.5 H Neutrophils % 44.1 Lymphocytes % 37.5 Monocytes % 14.3 H Eosinophils % 3.2 Basophils % 0.7 Nucleated Red Blood Cells % 0.0 Neutrophils # 1.8 Lymphocytes # 1.5 Monocytes # 0.6 Eosinophils # 0.1 Basophils # 0.0 Nucleated Red Blood Cells # 0.0 Sodium Level 144 Potassium Level 3.8 Chloride Level 105 Carbon Dioxide Level 28 Anion Gap 15 Blood Urea Nitrogen 6 L Creatinine 0.68 Glucose Level 92 Calcium Level 8.3 L Total Bilirubin 0.9 Direct Bilirubin 0.00 Indirect Bilirubin 0.9 Aspartate Amino Transf (AST/SGOT) 151 H Alanine Aminotransferase (ALT/SGPT) 263 H Alkaline Phosphatase 118 # Total Protein 7.1 # Albumin 3.6 Globulin 3.50 H Albumin/Globulin Ratio 1.02 Medications Medications Current Medications Dextrose/Sodium Chloride (D5-NS) 1,000 ml @ 70 mls/hr [id number] IV Last administered on 10/18/16 18:42; Admin Dose 70 MLS/HR; Start 10/15/16 at 20:30 Pantoprazole (Protonix Iv) 40 mg DAILY@06 IV Last administered on 10/19/16 05: 41; Admin Dose 40 MG; Start 10/16/16 at 06:00 Ondansetron HCl (Zofran Inj) 4 mg Q4H PRN IV NAUSEA AND/OR VOMITING Last administered on 10/18/16 22:17; Admin Dose 4 MG; Start 10/15/16 at 20:30 Morphine Sulfate (morphine) 2 mg Q4H PRN IV PAIN Last administered on 18:39; Admin Dose 2 MG; Start 10/15/16 at 20:30 Acetaminophen (Tylenol Tab) 650 mg Q6H PRN PO PAIN AND OR ELEVATED TEMP Last administered on 10/18/16 21:05; Admin Dose 650 MG; Start 10/15/16 at 20:30 Prednisone (Prednisone) 2.5 mg DAILY PO Last administered on 10/19/16 09:29; Admin Dose 2.5 MG; Start 10/16/16 at 09:00 Hydroxychloroquine Sulfate 200 mg 200 mg DAILY PO Last administered on 09:29; Admin Dose 200 MG; Start 10/16/16 at 09:00 Levofloxacin/ Dextrose (Levaquin 500mg/ D5W 100 ml (Pmx)) 100 ml @ 100 mls/hr Q24H IVPB Last administered on 10/18/16 22:17; Admin Dose 100 MLS/HR; Start at 22:30 CECILIA GONGORA Oct 19, 2016 11:12
--- NOTE | 2016-10-19 13:31 | CONS ---
Date/Time of Note Date/Time of Note DATE: 10/19/16 TIME: 13:30 Assessment/Plan Assessment/Plan Chief Complaint/Hosp Course 86-year-old female admitted to the [facility] [place] for abdominal pain confined to the right upper quadrant associated with nausea and vomiting. No GI bleeding no chest pain no shortness of breath no fever no chills. Patient was originally at [facility] emergency room that she was stabilized. Patient was subsequently transferred to [facility]. She had MRI done which showed 4 7 mm stone in the bile duct so GI consult was called and patient also had abnormal LFT and continues to have pain in the right upper quadrant. There was no evidence of acute cholecystitis at this point Problems: Additional Assessment/Plan Additional Assessment/Plan 1. Bile duct stone 2. Abdominal pain secondary to bile duct stone 3. Abnormal LFT 4. Mild anemia 5. Rheumatoid arthritis 6. Status post sphincterotomy with excellent drainage Plan Advance diet Surgery lap ad as per surgeon. Patient definitely has a cholecystitis based on my ERCP finding cystic duct was completely blocked Consultation Date/Type/Reason Admit Date/Time Oct 15, 2016 at 16:23 Initial Consult Date 10/16/16 Type of Consultation: surgical 24 HR Interval Summary Free Text/Dictation Abdominal pain right upper quadrant, aggravated by certain food Exam/Review of Systems Vital Signs Vitals Vital Signs Date Time Temp Pulse Resp B/P Pulse Ox O2 Delivery O2 Flow Rate FiO2 10/19/16 07:32 98.1 81 18 105/51 100 10/17/16 22:10 Nasal Cannula 2.0 Intake and Output 10/18/16 10/18/16 10/19/16 15:00 23:00 07:00 Intake Total 2290 ml 1160 ml Balance 2290 ml 1160 ml Exam Constitutional: alert, oriented, well developed Psych: nl mood/affect, no complaints Head: atraumatic, normocephalic Eyes: EOMI, PERRL, nl conjunctiva, nl lids, nl sclera ENMT: nl external ears & nose, nl lips & teeth, nl nasal mucosa & septum Neck: non-tender, supple Respiratory: clear to auscultation, normal air movement Cardiovascular: nl pulses, regular rate and rhythm Gastrointestinal: nl liver, spleen, non-tender, soft Musculoskeletal: nl extremities to inspection, nl gait and stance Extremities: normal pulses 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, nl mental status, nl speech, nl strength Skin: nl turgor, No rash or lesions Lymph: nl lymph nodes Results Result Diagram: 10/19/1652310/19/16523 Results 24 hrs Laboratory Tests Test 10/19/16 05:24 White Blood Count 4.1 L Red Blood Count 3.63 L Hemoglobin 10.7 L Hematocrit 33.0 L Mean Corpuscular Volume 90.9 Mean Corpuscular Hemoglobin 29.5 Mean Corpuscular Hemoglobin Concent 32.4 Red Cell Distribution Width 12.9 Platelet Count 181 Mean Platelet Volume 10.5 H Neutrophils % 44.1 Lymphocytes % 37.5 Monocytes % 14.3 H Eosinophils % 3.2 Basophils % 0.7 Nucleated Red Blood Cells % 0.0 Neutrophils # 1.8 Lymphocytes # 1.5 Monocytes # 0.6 Eosinophils # 0.1 Basophils # 0.0 Nucleated Red Blood Cells # 0.0 Sodium Level 144 Potassium Level 3.8 Chloride Level 105 Carbon Dioxide Level 28 Anion Gap 15 Blood Urea Nitrogen 6 L Creatinine 0.68 Glucose Level 92 Calcium Level 8.3 L Total Bilirubin 0.9 Direct Bilirubin 0.00 Indirect Bilirubin 0.9 Aspartate Amino Transf (AST/SGOT) 151 H Alanine Aminotransferase (ALT/SGPT) 263 H Alkaline Phosphatase 118 # Total Protein 7.1 # Albumin 3.6 Globulin 3.50 H Albumin/Globulin Ratio 1.02 Medications Medications Current Medications Dextrose/Sodium Chloride (D5-NS) 1,000 ml @ 70 mls/hr [id number] IV Last administered on 10/19/16 12:52; Admin Dose 70 MLS/HR; Start 10/15/16 at 20:30 Pantoprazole (Protonix Iv) 40 mg DAILY@06 IV Last administered on 10/19/16 05: 41; Admin Dose 40 MG; Start 10/16/16 at 06:00 Ondansetron HCl (Zofran Inj) 4 mg Q4H PRN IV NAUSEA AND/OR VOMITING Last administered on 10/18/16 22:17; Admin Dose 4 MG; Start 10/15/16 at 20:30 Morphine Sulfate (morphine) 2 mg Q4H PRN IV PAIN Last administered on 11:10; Admin Dose 2 MG; Start 10/15/16 at 20:30 Acetaminophen (Tylenol Tab) 650 mg Q6H PRN PO PAIN AND OR ELEVATED TEMP Last administered on 10/18/16 21:05; Admin Dose 650 MG; Start 10/15/16 at 20:30 Prednisone (Prednisone) 2.5 mg DAILY PO Last administered on 10/19/16 09:29; Admin Dose 2.5 MG; Start 10/16/16 at 09:00 Hydroxychloroquine Sulfate 200 mg 200 mg DAILY PO Last administered on 09:29; Admin Dose 200 MG; Start 10/16/16 at 09:00 Levofloxacin/ Dextrose (Levaquin 500mg/ D5W 100 ml (Pmx)) 100 ml @ 100 mls/hr Q24H IVPB Last administered on 10/18/16 22:17; Admin Dose 100 MLS/HR; Start at 22:30 Tramadol HCl (Ultram) 50 mg Q6H PRN PO PAIN; Start 10/19/16 at 12:00 MAGALY VINSON MD Oct 19, 2016 13:31
[2016-10-19 14:00] VITALS: BP 114/60; RESP 16
--- NOTE | 2016-10-19 16:05 | PN ---
Date/Time of Note Date/Time of Note DATE: 10/19/16 TIME: 15:59 Assessment/Plan Lines/Catheters IV Catheter Type (from [facility]): Peripheral IV Assessment/Plan Chief Complaint/Hosp Course 1. Cholelithiasis without cholecystitis; patient was planning to do surgery as outpt but after she was informed that surgery may take a while due to her hmo status, she developed pain in ruq and plans to stay for surgery when time becomes available -lap ad this week -abx -supportive care 2. Choledocholithiasis: s/p ERCP with sphincterotomy 10/17; 3. Abdominal pain: 2/2 above; -pain management -as above 4. Transaminitis 2/2 above; -as above 5. Normocytic anemia: no acute bleed noted -monitor and transfuse as needed 6. Rheumatoid arthritis -medical optimization Thank you, Problems: Subjective 24 Hr Interval Summary No fevers or chills. Min pain. s/p ERCP w sphincterotomy. Tolerating liquid diet. No stevens, dizziness, cp, palpitations, n/v/d, fevers, chills, dysuria. Exam/Review of Systems Vital Signs Vitals Vital Signs Date Time Temp Pulse Resp B/P Pulse Ox O2 Delivery O2 Flow Rate FiO2 10/19/16 07:32 98.1 81 18 105/51 100 10/17/16 22:10 Nasal Cannula 2.0 Intake and Output 10/18/16 10/18/16 10/19/16 15:00 23:00 07:00 Intake Total 2290 ml 1160 ml Balance 2290 ml 1160 ml Exam Free Text/Dictation Constitutional: alert, oriented Psych: nl mood/affect Head: atraumatic, normocephalic ENMT: mucosa pink and moist Neck: non-tender, supple Respiratory: normal air movement Cardiovascular: nl pulses, regular rate and rhythm Gastrointestinal: min tender without murphys. no rebound/guarding/rigidity Genitourinary - Female: No CVA tenderness Musculoskeletal: nl gait and stance Extremities: normal pulses, No edema Neurological: nl mental status, nl speech, nl strength Skin: No rash or lesions Results Result Diagram: 10/19/16 0524 10/19/16 0524 DC PENG MD Oct 19, 2016 16:05
[2016-10-19 20:00] VITALS: BP 105/54; RESP 18
[2016-10-19] MEDS: ONDANSETRON 4 MG INJ IV PRN (20:21)
[2016-10-19] MEDS: morphine 4 MG/ML VIAL IV PRN (20:21)
[2016-10-19] MEDS: LEVOFLOXACIN 500MG/D5W (PMX) 100 ML IVPB SCH (22:22)
[2016-10-20] MEDS: DEXTROSE 5%-0.9% NACL 1,000 ML IV SCH ×4 (00:36→20:07)
[2016-10-20 02:00] VITALS: BP 107/56; RESP 18
[2016-10-20] MEDS: PANTOPRAZOLE 40 MG INJ IV SCH (05:20)
--- NOTE | 2016-10-20 06:48 | GILP ---
DATE OF PROCEDURE: 10/17/2016 INDICATION: A 26-year-old female undergoing this procedure for abnormal LFT, biliary colic, and a stone found on MRCP. The risks of the procedure and related complications, and anesthetic risks, and alternatives were discussed. Informed consent was obtained. The complications of bleeding, perforation, pancreatitis, disability of the pancreatitis was all repeatedly discussed with the patient. They understood and agreed. PROCEDURE PERFORMED: The patient was brought to the OR, room number [address] Hendricks and placed in a prone position. Indocin suppository was given. She also received Cipro. ERCP scope passed as much into the esophagus and advanced further down into stomach and duodenum. Ampulla was identified. Selectively cannulated. There was a questionable stone in the distal part of the bile duct. At this point, sphincterotomy done and balloon sweeping done 5 times until the drainage was excellent. Since the drainage was good, no stone occlusive cholangiogram was identified. Decided to remove the scope and the guidewire was removed. The patient tolerated the procedure very well. IMPRESSION: 1. Large sphincterotomy done. 2. Balloon sweeping was done. Stone may have a popped out, I could not see. 3. Excellent drainage established. 4. Occlusive cholangiogram after the procedure was totally normal. 5. Fluoro time was 3 seconds. PLAN: The patient is asymptomatic, was started on a clear liquid diet. Cystic duct is completely blocked and may have acute cholecystitis and needs laparoscopic cholecystectomy. Dictated By: Carlos Saldivar MD /arnold/ /Document#: [id number] CC: Aaron White MD;*[facility]*
[2016-10-20] MEDS: traMADol 50 MG TAB PO PRN ×2 (07:31→14:03)
[2016-10-20 08:01] VITALS: BP 94/53; RESP 18
[2016-10-20] MEDS: predniSONE 2.5 MG TAB PO SCH (08:42)
[2016-10-20] MEDS: HYDROXYCHLOROQUINE 200 MG TAB PO SCH (08:42)
--- NOTE | 2016-10-20 09:49 | PN ---
Date/Time of Note Date/Time of Note DATE: 10/20/16 TIME: 09:45 Assessment/Plan Lines/Catheters IV Catheter Type (from Nrs): Peripheral IV Assessment/Plan Chief Complaint/Hosp Course 1. Cholelithiasis without cholecystitis; currently with RUQ pain -lap ad 2. Choledocholithiasis: s/p ERCP with sphincterotomy 10/17; pain 3. Abdominal pain: 2/2 above; improving -pain management -as above 4. Transaminitis 2/2 above; -as above 5. Overweight: BMI: 27 -lifestyle/diet modification 6. Hypocalcemia: normalized -replete and monitor 7. Normocytic anemia: no acute bleed noted -monitor and transfuse as needed 8. Rheumatoid arthritis -cont meds Patient seen and examined in collaboration with Dr. Aaron White. Problems: Subjective 24 Hr Interval Summary RUQ pain radiating to back. No n/v/d, fevers, chills, stevens, dizziness, palpitations, cough, sob. +bowel movement. tolerating diet. Exam/Review of Systems Vital Signs Vitals Vital Signs Date Time Temp Pulse Resp B/P Pulse Ox O2 Delivery O2 Flow Rate FiO2 10/20/16 08:01 98.1 74 18 94/53 100 10/17/16 22:10 Nasal Cannula 2.0 Intake and Output 10/19/16 10/19/16 10/20/16 15:00 23:00 07:00 Intake Total 1190 ml 1450 ml Balance 1190 ml 1450 ml Exam Free Text/Dictation Constitutional: alert, oriented Psych: nl mood/affect Head: atraumatic, normocephalic ENMT: mucosa pink and moist Neck: non-tender, supple Respiratory: normal air movement Cardiovascular: nl pulses, regular rate and rhythm Gastrointestinal: bowel sounds (x4), distended (min), guarding, mod tender Genitourinary - Female: No CVA tenderness Musculoskeletal: nl gait and stance Extremities: normal pulses, No edema Neurological: nl mental status, nl speech, nl strength Skin: No rash or lesions Results Result Diagram: 10/19/16 0524 10/19/16 0524 YUSEF SHAVER NP Oct 20, 2016 09:49
[2016-10-20 11:31] LABS: BASOPHILS % 0.5 % (0.0-2.0); EOSINOPHILS # 0.2 10^3/ul (0.0-0.5); EOSINOPHILS % 3.4 % (0.0-7.0); HEMATOCRIT 32.7 % (37.0-47.0); HEMOGLOBIN 10.6 g/dl (12.0-16.0); LYMPHOCYTES # 1.5 10^3/ul (0.8-2.9); LYMPHOCYTES % 34.7 % (15.0-51.0); MEAN CORPUSCULAR HEMOGLOBIN 29.6 pg (29.0-33.0); MEAN CORPUSCULAR HGB CONC 32.4 g/dl (32.0-37.0); MEAN CORPUSCULAR VOLUME 91.3 fl (82.0-101.0); MEAN PLATELET VOLUME 10.5 fl (7.4-10.4); MONOCYTE # 0.6 10^3/ul (0.3-0.9); MONOCYTES % 13.3 % (0.0-11.0); NEUTROPHIL # 2.1 10^3/ul (1.6-7.5); NEUTROPHILS % 47.6 % (39.0-77.0); PLATELET COUNT 179 10^3/UL (140-415); RED BLOOD COUNT 3.58 10^6/ul (4.20-5.40); RED CELL DISTRIBUTION WIDTH 12.9 % (11.5-14.5); WHITE BLOOD COUNT 4.4 10^3/ul (4.8-10.8)
[2016-10-20 12:09] LABS: ALBUMIN 3.6 g/dl (3.3-4.9); BILIRUBIN,INDIRECT 0.6 mg/dl (0-1.1); BILIRUBIN,TOTAL 0.6 mg/dl (0.2-1.3); CALCIUM 8.4 mg/dl (8.4-10.2); CREATININE 0.69 mg/dl (0.44-1.00); POTASSIUM 3.9 mmol/L (3.5-5.1); TOTAL PROTEIN 6.9 g/dl (6.1-8.1)
[2016-10-20 14:11] VITALS: BP 110/67; RESP 18
--- NOTE | 2016-10-20 17:51 | PN ---
Date/Time of Note Date/Time of Note DATE: 10/20/16 TIME: 17:47 Assessment/Plan VTE Prophylaxis VTE Prophylaxis Intervention: other Lines/Catheters IV Catheter Type (from Nrs): Peripheral IV Assessment/Plan Chief Complaint/Hosp Course S/P ERCP GALLSTONE ABD PAIN PLAN LAP AUNG SOON Problems: Subjective 24 Hr Interval Summary Respiratory: no complaints Cardiovascular: no complaints Gastrointestinal: no complaints Genitourinary: no complaints Musculoskeletal: no complaints Exam/Review of Systems Vital Signs Vitals Vital Signs Date Time Temp Pulse Resp B/P Pulse Ox O2 Delivery O2 Flow Rate FiO2 10/20/16 14:11 98.2 66 18 110/67 99 10/17/16 22:10 Nasal Cannula 2.0 Intake and Output 10/19/16 10/19/16 10/20/16 15:00 23:00 07:00 Intake Total 1190 ml 1450 ml Balance 1190 ml 1450 ml Exam Neck: supple Respiratory: clear to auscultation Cardiovascular: regular rate and rhythm Gastrointestinal: bowel sounds (+), soft Results Result Diagram: 10/20/16 1052 10/20/16 1052 Results 24 hrs Laboratory Tests Test 10/20/16 10:52 White Blood Count 4.4 L Red Blood Count 3.58 L Hemoglobin 10.6 L Hematocrit 32.7 L Mean Corpuscular Volume 91.3 Mean Corpuscular Hemoglobin 29.6 Mean Corpuscular Hemoglobin Concent 32.4 Red Cell Distribution Width 12.9 Platelet Count 179 Mean Platelet Volume 10.5 H Neutrophils % 47.6 Lymphocytes % 34.7 Monocytes % 13.3 H Eosinophils % 3.4 Basophils % 0.5 Nucleated Red Blood Cells % 0.0 Neutrophils # 2.1 Lymphocytes # 1.5 Monocytes # 0.6 Eosinophils # 0.2 Basophils # 0.0 Nucleated Red Blood Cells # 0.0 Sodium Level 143 Potassium Level 3.9 Chloride Level 104 Carbon Dioxide Level 28 Anion Gap 15 Blood Urea Nitrogen 3 L Creatinine 0.69 Glucose Level 92 Calcium Level 8.4 Total Bilirubin 0.6 Direct Bilirubin 0.00 Indirect Bilirubin 0.6 Aspartate Amino Transf (AST/SGOT) 55 H Alanine Aminotransferase (ALT/SGPT) 175 H Alkaline Phosphatase 94 Total Protein 6.9 Albumin 3.6 Medications Medications Current Medications Dextrose/Sodium Chloride (D5-NS) 1,000 ml @ 70 mls/hr [id number] IV Last administered on 10/20/16 05:20; Admin Dose 70 MLS/HR; Start 10/15/16 at 20:30 Pantoprazole (Protonix Iv) 40 mg DAILY@06 IV Last administered on 10/20/16 05: 20; Admin Dose 40 MG; Start 10/16/16 at 06:00 Ondansetron HCl (Zofran Inj) 4 mg Q4H PRN IV NAUSEA AND/OR VOMITING Last administered on 10/19/16 20:21; Admin Dose 4 MG; Start 10/15/16 at 20:30 Acetaminophen (Tylenol Tab) 650 mg Q6H PRN PO PAIN AND OR ELEVATED TEMP Last administered on 10/18/16 21:05; Admin Dose 650 MG; Start 10/15/16 at 20:30 Prednisone (Prednisone) 2.5 mg DAILY PO Last administered on 10/20/16 08:42; Admin Dose 2.5 MG; Start 10/16/16 at 09:00 Hydroxychloroquine Sulfate 200 mg 200 mg DAILY PO Last administered on 08:42; Admin Dose 200 MG; Start 10/16/16 at 09:00 Levofloxacin/ Dextrose (Levaquin 500mg/ D5W 100 ml (Pmx)) 100 ml @ 100 mls/hr Q24H IVPB Last administered on 10/19/16 22:22; Admin Dose 100 MLS/HR; Start at 22:30 Tramadol HCl (Ultram) 50 mg Q6H PRN PO PAIN Last administered on 10/20/16 14: 03; Admin Dose 50 MG; Start 10/19/16 at 12:00 Morphine Sulfate (morphine) 2 mg Q4H PRN IV PAIN Last administered on 20:21; Admin Dose 2 MG; Start 10/19/16 at 20:30 PEARL SEAMAN MD Oct 20, 2016 17:51
[2016-10-20 20:07] VITALS: BP 125/67; PULSE 73; RESP 19
[2016-10-20] MEDS: LEVOFLOXACIN 500MG/D5W (PMX) 100 ML IVPB SCH (22:15)
--- NOTE | 2016-10-20 22:15 | CONS ---
Date/Time of Note Date/Time of Note DATE: 10/20/16 TIME: 22:15 Assessment/Plan Assessment/Plan Chief Complaint/Hosp Course 86-year-old female admitted to the [facility] for abdominal pain confined to the right upper quadrant associated with nausea and vomiting. No GI bleeding no chest pain no shortness of breath no fever no chills. Patient was originally at [facility] emergency room that she was stabilized. Patient was subsequently transferred to [facility]. She had MRI done which showed 4 7 mm stone in the bile duct so GI consult was called and patient also had abnormal LFT and continues to have pain in the right upper quadrant. There was no evidence of acute cholecystitis at this point Problems: Additional Assessment/Plan Additional Assessment/Plan 1. Bile duct stone 2. Abdominal pain secondary to bile duct stone 3. Abnormal LFT 4. Mild anemia 5. Rheumatoid arthritis 6. Status post sphincterotomy with excellent drainage Plan Advance diet Surgery lap ad as per surgeon. Patient definitely has a cholecystitis based on my ERCP finding cystic duct was completely blocked Consultation Date/Type/Reason Admit Date/Time Oct 15, 2016 at 16:23 Initial Consult Date 10/16/16 Type of Consultation: surgical 24 HR Interval Summary Constitutional: improved Exam/Review of Systems Vital Signs Vitals Vital Signs Date Time Temp Pulse Resp B/P Pulse Ox O2 Delivery O2 Flow Rate FiO2 10/20/16 20:07 98.2 73 19 125/67 100 Room Air 10/17/16 22:10 2.0 Intake and Output 10/19/16 10/19/16 10/20/16 15:00 23:00 07:00 Intake Total 1190 ml 1450 ml Balance 1190 ml 1450 ml Exam Constitutional: alert, oriented, well developed Psych: nl mood/affect, no complaints Head: atraumatic, normocephalic Eyes: EOMI, PERRL, nl conjunctiva, nl lids, nl sclera ENMT: nl external ears & nose, nl lips & teeth, nl nasal mucosa & septum Neck: non-tender, supple Respiratory: clear to auscultation, normal air movement Cardiovascular: nl pulses, regular rate and rhythm Gastrointestinal: nl liver, spleen, non-tender, soft Musculoskeletal: nl extremities to inspection, nl gait and stance Extremities: normal pulses Neurological: TALENT REP II-XII intact, nl mental status, nl speech, nl strength Skin: nl turgor, No rash or lesions Lymph: nl lymph nodes Results Result Diagram: 10/20/16 1052 10/20/16 1052 Results 24 hrs Laboratory Tests Test 10/20/16 10:52 White Blood Count 4.4 L Red Blood Count 3.58 L Hemoglobin 10.6 L Hematocrit 32.7 L Mean Corpuscular Volume 91.3 Mean Corpuscular Hemoglobin 29.6 Mean Corpuscular Hemoglobin Concent 32.4 Red Cell Distribution Width 12.9 Platelet Count 179 Mean Platelet Volume 10.5 H Neutrophils % 47.6 Lymphocytes % 34.7 Monocytes % 13.3 H Eosinophils % 3.4 Basophils % 0.5 Nucleated Red Blood Cells % 0.0 Neutrophils # 2.1 Lymphocytes # 1.5 Monocytes # 0.6 Eosinophils # 0.2 Basophils # 0.0 Nucleated Red Blood Cells # 0.0 Sodium Level 143 Potassium Level 3.9 Chloride Level 104 Carbon Dioxide Level 28 Anion Gap 15 Blood Urea Nitrogen 3 L Creatinine 0.69 Glucose Level 92 Calcium Level 8.4 Total Bilirubin 0.6 Direct Bilirubin 0.00 Indirect Bilirubin 0.6 Aspartate Amino Transf (AST/SGOT) 55 H Alanine Aminotransferase (ALT/SGPT) 175 H Alkaline Phosphatase 94 Total Protein 6.9 Albumin 3.6 Medications Medications Current Medications Dextrose/Sodium Chloride (D5-NS) 1,000 ml @ 70 mls/hr [id number] IV Last administered on 10/20/16 20:07; Admin Dose 70 MLS/HR; Start 10/15/16 at 20:30 Pantoprazole (Protonix Iv) 40 mg DAILY@06 IV Last administered on 10/20/16 05: 20; Admin Dose 40 MG; Start 10/16/16 at 06:00 Ondansetron HCl (Zofran Inj) 4 mg Q4H PRN IV NAUSEA AND/OR VOMITING Last administered on 10/19/16 20:21; Admin Dose 4 MG; Start 10/15/16 at 20:30 Acetaminophen (Tylenol Tab) 650 mg Q6H PRN PO PAIN AND OR ELEVATED TEMP Last administered on 10/18/16 21:05; Admin Dose 650 MG; Start 10/15/16 at 20:30 Prednisone (Prednisone) 2.5 mg DAILY PO Last administered on 10/20/16 08:42; Admin Dose 2.5 MG; Start 10/16/16 at 09:00 Hydroxychloroquine Sulfate 200 mg 200 mg DAILY PO Last administered on 08:42; Admin Dose 200 MG; Start 10/16/16 at 09:00 Levofloxacin/ Dextrose (Levaquin 500mg/ D5W 100 ml (Pmx)) 100 ml @ 100 mls/hr Q24H IVPB Last administered on 10/19/16 22:22; Admin Dose 100 MLS/HR; Start at 22:30 Tramadol HCl (Ultram) 50 mg Q6H PRN PO PAIN Last administered on 10/20/16 14: 03; Admin Dose 50 MG; Start 10/19/16 at 12:00 Morphine Sulfate (morphine) 2 mg Q4H PRN IV PAIN Last administered on 20:21; Admin Dose 2 MG; Start 10/19/16 at 20:30 MAGALY VINSON MD Oct 20, 2016 22:15
[2016-10-21] VITALS (16 sets, daily range): BP systolic 96–142; BP diastolic 55–85; PULSE 64–78; RESP 16–18
[2016-10-21] MEDS: DEXTROSE 5%-0.9% NACL 1,000 ML IV SCH ×3 (05:12→19:30)
[2016-10-21] MEDS: PANTOPRAZOLE 40 MG INJ IV SCH (05:37)
[2016-10-21 05:39] LABS: BASOPHILS % 0.5 % (0.0-2.0); EOSINOPHILS # 0.1 10^3/ul (0.0-0.5); EOSINOPHILS % 3.8 % (0.0-7.0); HEMATOCRIT 33.3 % (37.0-47.0); HEMOGLOBIN 11.1 g/dl (12.0-16.0); LYMPHOCYTES # 1.6 10^3/ul (0.8-2.9); LYMPHOCYTES % 43.4 % (15.0-51.0); MEAN CORPUSCULAR HEMOGLOBIN 30.2 pg (29.0-33.0); MEAN CORPUSCULAR HGB CONC 33.3 g/dl (32.0-37.0); MEAN CORPUSCULAR VOLUME 90.5 fl (82.0-101.0); MEAN PLATELET VOLUME 9.9 fl (7.4-10.4); MONOCYTE # 0.4 10^3/ul (0.3-0.9); MONOCYTES % 11.4 % (0.0-11.0); NEUTROPHIL # 1.5 10^3/ul (1.6-7.5); NEUTROPHILS % 40.6 % (39.0-77.0); PLATELET COUNT 179 10^3/UL (140-415); RED BLOOD COUNT 3.68 10^6/ul (4.20-5.40); RED CELL DISTRIBUTION WIDTH 12.7 % (11.5-14.5); WHITE BLOOD COUNT 3.7 10^3/ul (4.8-10.8)
[2016-10-21 05:53] LABS: INR 1.11; PARTIAL THROMBOPLASTIN TIME 29.8 Sec (25.0-35.0); PROTIME 14.3 Sec (12.2-14.2); PT RATIO 1.1
[2016-10-21 05:56] LABS: AMYLASE 78 U/L (11-123)
[2016-10-21 06:31] LABS: ALBUMIN 3.7 g/dl (3.3-4.9); ALBUMIN/GLOBULIN RATIO 1.12; BILIRUBIN,INDIRECT 0.7 mg/dl (0-1.1); BILIRUBIN,TOTAL 0.7 mg/dl (0.2-1.3); CALCIUM 8.5 mg/dl (8.4-10.2); CREATININE 0.68 mg/dl (0.44-1.00); POTASSIUM 3.9 mmol/L (3.5-5.1)
[2016-10-21] MEDS: HYDROXYCHLOROQUINE 200 MG TAB PO SCH (08:44)
[2016-10-21] MEDS: predniSONE 2.5 MG TAB PO SCH (08:44)
--- NOTE | 2016-10-21 11:10 | CONS ---
Date/Time of Note Date/Time of Note DATE: 10/21/16 TIME: 11:09 Assessment/Plan Assessment/Plan Chief Complaint/Hosp Course 86-year-old female admitted to the [facility] for abdominal pain confined to the right upper quadrant associated with nausea and vomiting. No GI bleeding no chest pain no shortness of breath no fever no chills. Patient was originally at [facility] emergency room that she was stabilized. Patient was subsequently transferred to [facility]. She had MRI done which showed 4 7 mm stone in the bile duct so GI consult was called and patient also had abnormal LFT and continues to have pain in the right upper quadrant. There was no evidence of acute cholecystitis at this point Problems: Additional Assessment/Plan Additional Assessment/Plan 1. Bile duct stone 2. Abdominal pain secondary to bile duct stone 3. Abnormal LFT 4. Mild anemia 5. Rheumatoid arthritis 6. Status post sphincterotomy with excellent drainage Plan Advance diet Surgery lap ad as per surgeon. Patient definitely has a cholecystitis based on my ERCP finding cystic duct was completely blocked Patient is scheduled for left fluoroscopic cholecystectomy today Consultation Date/Type/Reason Admit Date/Time Oct 15, 2016 at 16:23 Initial Consult Date 10/16/16 Type of Consultation: surgical 24 HR Interval Summary Constitutional: improved Exam/Review of Systems Vital Signs Vitals Vital Signs Date Time Temp Pulse Resp B/P Pulse Ox O2 Delivery O2 Flow Rate FiO2 10/21/16 07:17 98.7 86 18 100/61 100 10/21/16 02:31 Room Air 10/17/16 22:10 2.0 Intake and Output 10/20/16 10/20/16 10/21/16 15:00 23:00 07:00 Intake Total 1840 ml 1530 ml Balance 1840 ml 1530 ml Exam Constitutional: alert, oriented, well developed Psych: nl mood/affect, no complaints Head: atraumatic, normocephalic Eyes: EOMI, PERRL, nl conjunctiva, nl lids, nl sclera ENMT: nl external ears & nose, nl lips & teeth, nl nasal mucosa & septum Neck: non-tender, supple Respiratory: clear to auscultation, normal air movement Cardiovascular: nl pulses, regular rate and rhythm Gastrointestinal: nl liver, spleen, non-tender, soft Musculoskeletal: nl extremities to inspection, nl gait and stance Extremities: normal pulses Neurological: WIDE AREA NETWORK ADMINISTRATOR II-XII intact, nl mental status, nl speech, nl strength Skin: nl turgor, No rash or lesions Lymph: nl lymph nodes Results Result Diagram: 10/21/1651810/21/16518 Results 24 hrs Laboratory Tests Test 10/21/16 05:19 White Blood Count 3.7 L Red Blood Count 3.68 L Hemoglobin 11.1 L Hematocrit 33.3 L Mean Corpuscular Volume 90.5 Mean Corpuscular Hemoglobin 30.2 Mean Corpuscular Hemoglobin Concent 33.3 Red Cell Distribution Width 12.7 Platelet Count 179 Mean Platelet Volume 9.9 Neutrophils % 40.6 Lymphocytes % 43.4 Monocytes % 11.4 H Eosinophils % 3.8 Basophils % 0.5 Nucleated Red Blood Cells % 0.0 Neutrophils # 1.5 L Lymphocytes # 1.6 Monocytes # 0.4 Eosinophils # 0.1 Basophils # 0.0 Nucleated Red Blood Cells # 0.0 Prothrombin Time 14.3 H Prothrombin Time Ratio 1.1 INR International Normalized Ratio 1.11 Activated Partial Thromboplast Time 29.8 Sodium Level 144 Potassium Level 3.9 Chloride Level 102 Carbon Dioxide Level 30 Anion Gap 16 Blood Urea Nitrogen 3 L Creatinine 0.68 Glucose Level 95 Calcium Level 8.5 Total Bilirubin 0.7 Direct Bilirubin 0.00 Indirect Bilirubin 0.7 Aspartate Amino Transf (AST/SGOT) 37 Alanine Aminotransferase (ALT/SGPT) 142 H Alkaline Phosphatase 85 Total Protein 7.0 Albumin 3.7 Globulin 3.30 H Albumin/Globulin Ratio 1.12 Amylase Level 78 Lipase 128 Medications Medications Current Medications Dextrose/Sodium Chloride (D5-NS) 1,000 ml @ 70 mls/hr [id number] IV Last administered on 10/20/16 20:07; Admin Dose 70 MLS/HR; Start 10/15/16 at 20:30 Pantoprazole (Protonix Iv) 40 mg DAILY@06 IV Last administered on 10/21/16 05: 37; Admin Dose 40 MG; Start 10/16/16 at 06:00 Ondansetron HCl (Zofran Inj) 4 mg Q4H PRN IV NAUSEA AND/OR VOMITING Last administered on 10/19/16 20:21; Admin Dose 4 MG; Start 10/15/16 at 20:30 Acetaminophen (Tylenol Tab) 650 mg Q6H PRN PO PAIN AND OR ELEVATED TEMP Last administered on 10/18/16 21:05; Admin Dose 650 MG; Start 10/15/16 at 20:30 Prednisone (Prednisone) 2.5 mg DAILY PO Last administered on 10/20/16 08:42; Admin Dose 2.5 MG; Start 10/16/16 at 09:00 Hydroxychloroquine Sulfate 200 mg 200 mg DAILY PO Last administered on 08:42; Admin Dose 200 MG; Start 10/16/16 at 09:00 Levofloxacin/ Dextrose (Levaquin 500mg/ D5W 100 ml (Pmx)) 100 ml @ 100 mls/hr Q24H IVPB Last administered on 10/20/16 22:15; Admin Dose 100 MLS/HR; Start at 22:30 Tramadol HCl (Ultram) 50 mg Q6H PRN PO PAIN Last administered on 10/20/16 14: 03; Admin Dose 50 MG; Start 10/19/16 at 12:00 Morphine Sulfate (morphine) 2 mg Q4H PRN IV PAIN Last administered on 20:21; Admin Dose 2 MG; Start 10/19/16 at 20:30 MAGALY VINSON MD Oct 21, 2016 11:10
[2016-10-21] MEDS ORDERED: hydrALAzine 20 MG INJ IV PRN (12:30)
[2016-10-21] MEDS ORDERED: ONDANSETRON 4 MG INJ IV PRN (12:30)
[2016-10-21] MEDS ORDERED: DIPHENHYDRAMINE 50 MG INJ IV PRN (12:30)
[2016-10-21] MEDS ORDERED: FENTAnyl 50 MCG/ML VIAL IV PRN ×3 (12:30)
[2016-10-21] MEDS ORDERED: METOCLOPRAMIDE 10 MG INJ IV PRN (12:30)
[2016-10-21] MEDS ORDERED: HYDROmorphONE (0.2 MG/ML) 10ML SYG IV PRN ×2 (12:30)
[2016-10-21] MEDS ORDERED: LABETALOL HCL 20MG INJ IV PRN (12:30)
[2016-10-21] MEDS ORDERED: OXYCODONE/ACETAMINOPHEN (5/325) TAB PO PRN ×2 (12:30)
[2016-10-21] MEDS ORDERED: MEPERIDINE 25 MG INJ IV PRN (12:30)
[2016-10-21] MEDS ORDERED: EPHEDrine SULFATE 50 MG/5 ML SYG IV PRN (12:30)
[2016-10-21] MEDS ORDERED: PROPOFOL 100 ML ONE (12:36)
[2016-10-21] MEDS ORDERED: LIDOCAINE 1% (MPF) 30 ML INJ ONE (12:37)
[2016-10-21] MEDS ORDERED: LIDOCAINE 2% (SDV) 5 ML INJ ONE (12:39)
[2016-10-21] MEDS ORDERED: ROCURONIUM 50 MG INJ ONE (12:39)
[2016-10-21] MEDS ORDERED: BUPIVACAINE 0.25%/EPI (SDV) 30 ML INJ ONE (12:40)
[2016-10-21] MEDS ORDERED: ONDANSETRON 4 MG INJ ONE (12:41)
[2016-10-21] MEDS ORDERED: HYDROCORTISONE 100 MG INJ ONE (12:41)
[2016-10-21] MEDS ORDERED: DEXAMETHASONE 4 MG/ML 1 ML INJ ONE (12:41)
[2016-10-21] MEDS ORDERED: metroNIDAZOLE 500 MG/NS (PMX) 100 ML IVPB ONE (13:11)
[2016-10-21] MEDS ORDERED: ACETAMINOPHEN 1000MG/100ML IV 100 ML ONE (13:13)
[2016-10-21] MEDS ORDERED: BUPIVACAINE 0.25%/EPI (SDV) 30 ML INJ INJ ONE (13:36)
[2016-10-21] MEDS ORDERED: LIDOCAINE 1% (MPF) 30 ML INJ INJ ONE (13:36)
[2016-10-21] MEDS ORDERED: LABETALOL HCL 20MG INJ ONE (13:49)
[2016-10-21] MEDS ORDERED: NEOSTIGMINE 3 MG/3 ML SYRINGE ONE (14:17)
[2016-10-21] MEDS ORDERED: GLYCOPYRROLATE 1 MG INJ ONE (14:17)
[2016-10-21] MEDS: HYDROmorphONE (0.2 MG/ML) 10ML SYG IV PRN ×2 (15:15→15:38)
--- NOTE | 2016-10-21 15:26 | OPR ---
Date/Time of Note Date/Time of Note DATE: 10/21/16 TIME: 15:22 Operative Report Procedure Date: Oct 21, 2016 Procedure Description Preoperative Diagnosis: Gallstone pancreatitis Symptomatic cholelithiasis Cholecystitis Postoperative Diagnosis: Gallstone pancreatitis Symptomatic cholelithiasis Cholecystitis Operation(s) Performed: 1. 3 port laparoscopic cholecystectomy 2. Laparoscopic liver wedge resection biopsy 3. [place], [id number] 4. Laparoscopic guided transversus abdominis plane block, bilateral Surgeon: DC PENG MD Anesthesia: general, local, & regional Anesthesiologist: Chance Venegas MD Estimated Blood Loss: 0 - 10 ml's Specimens: Liver Gallbladder Tubes/Drains: None Complications: None Pt Condition Post Procedure: stable Disposition: PACU Indications: 26-year-old female with gallstones, recent pancreatitis status post ERCP, and abdominal pain here for cholecystectomy. Risks include but are not limited to bleeding, infection, abscess, seroma, damage to intestines, damage to the liver, damage to biliary tree, hernia formation, chronic pain, biloma, need for reoperations or further surgeries, NV , stroke, PE, DVT, pneumonia, organ failures, or even . Procedure Description: Patient was brought and placed supine on the operating table SCDs were placed, preoperative antibiotics were administered, all pressure points were well-padded , and after induction of anesthesia patient was prepped and draped in usual sterile fashion and timeout was performed. Incision was made in the supraumbilical region, Veress was safely inserted, and after a negative SIP test , abdomen was insufflated to 15mmHg. Veress was removed and 5mm port was safely inserted. Laparoscopy was performed with a 5 mm 30 scope. No injuries were identified. The liver looks somewhat abnormal color. Gallbladder is without evidence of section. 12 mm port is placed in subxiphoid under direct visualization followed by another 5 mm port in the right upper quadrant. All port sites were injected with quarter percent Marcaine with epi and 1% lidocaine prior to any incisions. Bilateral transversus abdominis plane block was performed under laparoscopic visualization to aid with pain control intra-and postoperatively. Patient was placed in reverse Trendelenburg and right side up on gallbladder was retracted superolaterally. The gallbladder was large and distended. There were large stones within the gallbladder. Using electrocautery and blunt dissection I was able to identify the cystic artery and cystic duct. The duct was dilated but tapered into the gallbladder. Full critical angle view was identified. Artery was clipped twice proximally and once distally and transected. Since the duct was dilated it was transected with Endo KENNEDI white load 35 mm stapler. The gallbladder was taken off the liver with electrocautery. Hemostasis was obtained. Gallbladder was placed in an Endo Catch bag and removed through the subxiphoid port site. That incision had to be enlarged to accommodate the large stones. There was complete hemostasis. Due to the abnormality of the liver decision was made to perform liver wedge resection which was done with electrocautery and scissor with complete hemostasis right after. The specimen was sent to pathology for further evaluation. 12 mm made port site fascia was closed with Endo Close of an 0 Vicryl in a [id number] manner. Ports and CO2 were removed under direct visualization. Next complete hemostasis. Wounds were thoroughly irrigated skin was closed with 4-0 Monocryl in subcuticular fashion. Dermabond was applied. Patient was extubated and transferred to recovery room in stable condition and all counts were correct and the end of the operation 2. DC PENG MD Oct 21, 2016 15:26
[2016-10-21] MEDS ORDERED: HYDROmorphONE 1 MG/ML SYG IV PRN (15:30)
[2016-10-21] MEDS ORDERED: ACETAMINOPHEN 500 MG TAB PO PRN (15:30)
[2016-10-21] MEDS ORDERED: HYDROCODONE/APAP (5/325) TAB PO PRN (15:30)
--- NOTE | 2016-10-21 16:03 | PN ---
Date/Time of Note Date/Time of Note DATE: 10/21/16 TIME: 15:59 Assessment/Plan Lines/Catheters IV Catheter Type (from [facility]): Saline Lock Assessment/Plan Chief Complaint/Hosp Course 1. Cholelithiasis without cholecystitis: -lap ad today 2. Choledocholithiasis: s/p ERCP with sphincterotomy 10/17; pain 3. Abdominal pain: 2/2 above; intermittent -pain management -as above 4. Transaminitis 2/2 above; improved -as above 5. Overweight: BMI: 27 -lifestyle/diet modification 6. Hypocalcemia: normalized 7. Normocytic anemia: no acute bleed noted; stable 8. Rheumatoid arthritis -cont meds Patient seen and examined in collaboration with Dr. Aaron White. Problems: Subjective 24 Hr Interval Summary Intermittent abdominal pain. For surgery today. No fevers, chills, stevens, dizziness , cp, palpitations, n/v/d. Exam/Review of Systems Vital Signs Vitals Vital Signs Date Time Temp Pulse Resp B/P Pulse Ox O2 Delivery O2 Flow Rate FiO2 10/21/16 15:52 97.7 66 18 142/77 100 10/21/16 15:33 Room Air 10/17/16 22:10 2.0 Intake and Output 10/20/16 10/20/16 10/21/16 15:00 23:00 07:00 Intake Total 1840 ml 1530 ml Balance 1840 ml 1530 ml Exam Free Text/Dictation Constitutional: alert, oriented Psych: nl mood/affect Head: atraumatic, normocephalic ENMT: mucosa pink and moist Neck: non-tender, supple Respiratory: normal air movement Cardiovascular: nl pulses, regular rate and rhythm Gastrointestinal: bowel sounds (x4), distended (min), min guarding, mod tender Genitourinary - Female: No CVA tenderness Musculoskeletal: nl gait and stance Extremities: normal pulses, No edema Neurological: nl mental status, nl speech, nl strength Skin: No rash or lesions Results Result Diagram: 10/21/16 0519 10/21/16 0519 YUSEF SHAVER NP Oct 21, 2016 16:03
[2016-10-21] MEDS: PANTOPRAZOLE (EC) 40 MG TAB PO SCH (16:17)
--- NOTE | 2016-10-21 17:47 | PN ---
Date/Time of Note Date/Time of Note DATE: 10/21/16 TIME: 17:46 Assessment/Plan VTE Prophylaxis VTE Prophylaxis Intervention: other Lines/Catheters IV Catheter Type (from Nrsg): Saline Lock Assessment/Plan Chief Complaint/Hosp Course S/P ERCP GALLSTONE ABD PAIN S/P LAP CHOLECYSTECTIOMY PLAN PAIN MEDS PER SURGERY Problems: Subjective 24 Hr Interval Summary Subjective hx not possible: other (S/P LAP AUNG C/O ABD PAIN) Exam/Review of Systems Vital Signs Vitals Vital Signs Date Time Temp Pulse Resp B/P Pulse Ox O2 Delivery O2 Flow Rate FiO2 10/21/16 15:52 97.7 66 18 142/77 100 10/21/16 15:33 Room Air 10/17/16 22:10 2.0 Intake and Output 10/20/16 10/20/16 10/21/16 15:00 23:00 07:00 Intake Total 1840 ml 1530 ml Balance 1840 ml 1530 ml Exam Neck: supple Respiratory: clear to auscultation Cardiovascular: regular rate and rhythm Gastrointestinal: bowel sounds, soft Results Result Diagram: 10/21/16 0519 10/21/16 0519 Results 24 hrs Laboratory Tests Test 10/21/16 05:19 White Blood Count 3.7 L Red Blood Count 3.68 L Hemoglobin 11.1 L Hematocrit 33.3 L Mean Corpuscular Volume 90.5 Mean Corpuscular Hemoglobin 30.2 Mean Corpuscular Hemoglobin Concent 33.3 Red Cell Distribution Width 12.7 Platelet Count 179 Mean Platelet Volume 9.9 Neutrophils % 40.6 Lymphocytes % 43.4 Monocytes % 11.4 H Eosinophils % 3.8 Basophils % 0.5 Nucleated Red Blood Cells % 0.0 Neutrophils # 1.5 L Lymphocytes # 1.6 Monocytes # 0.4 Eosinophils # 0.1 Basophils # 0.0 Nucleated Red Blood Cells # 0.0 Prothrombin Time 14.3 H Prothrombin Time Ratio 1.1 INR International Normalized Ratio 1.11 Activated Partial Thromboplast Time 29.8 Sodium Level 144 Potassium Level 3.9 Chloride Level 102 Carbon Dioxide Level 30 Anion Gap 16 Blood Urea Nitrogen 3 L Creatinine 0.68 Glucose Level 95 Calcium Level 8.5 Total Bilirubin 0.7 Direct Bilirubin 0.00 Indirect Bilirubin 0.7 Aspartate Amino Transf (AST/SGOT) 37 Alanine Aminotransferase (ALT/SGPT) 142 H Alkaline Phosphatase 85 Total Protein 7.0 Albumin 3.7 Globulin 3.30 H Albumin/Globulin Ratio 1.12 Amylase Level 78 Lipase 128 Medications Medications Current Medications Dextrose/Sodium Chloride (D5-NS) 1,000 ml @ 70 mls/hr [id number] IV Last administered on 10/21/16 16:18; Admin Dose 70 MLS/HR; Start 10/15/16 at 20:30 Pantoprazole (Protonix Iv) 40 mg DAILY@06 IV Last administered on 10/21/16 05: 37; Admin Dose 40 MG; Start 10/16/16 at 06:00 Ondansetron HCl (Zofran Inj) 4 mg Q4H PRN IV NAUSEA AND/OR VOMITING Last administered on 10/19/16 20:21; Admin Dose 4 MG; Start 10/15/16 at 20:30 Prednisone (Prednisone) 2.5 mg DAILY PO Last administered on 10/20/16 08:42; Admin Dose 2.5 MG; Start 10/16/16 at 09:00 Hydroxychloroquine Sulfate 200 mg 200 mg DAILY PO Last administered on 08:42; Admin Dose 200 MG; Start 10/16/16 at 09:00 Levofloxacin/ Dextrose (Levaquin 500mg/ D5W 100 ml (Pmx)) 100 ml @ 100 mls/hr Q24H IVPB Last administered on 10/20/16 22:15; Admin Dose 100 MLS/HR; Start at 22:30 Tramadol HCl (Ultram) 50 mg Q6H PRN PO PAIN Last administered on 10/20/16 14: 03; Admin Dose 50 MG; Start 10/19/16 at 12:00 Morphine Sulfate (morphine) 2 mg Q4H PRN IV PAIN Last administered on 20:21; Admin Dose 2 MG; Start 10/19/16 at 20:30 Acetaminophen (Tylenol Tab) 500 mg Q6H PRN PO PAIN 1-5 AND OR ELEVATED TEMP; Start 10/21/16 at 15:30 Pantoprazole (Protonix Tab) 40 mg DAILY@06 PO Last administered on 10/21/16 16: 17; Admin Dose 40 MG; Start 10/21/16 at 17:00 Acetaminophen/ Hydrocodone Bitart ([place] (5/325)) 1 tab Q4H PRN PO Pain 6-10; Start 10/21/16 at 15:30 Hydromorphone HCl (Dilaudid) 0.5 mg Q2 PRN IV Breakthrough PAIN; Start 10/21/16 at 15:30 PEARL SEAMAN MD Oct 21, 2016 17:47
[2016-10-21] MEDS: morphine 4 MG/ML VIAL IV PRN (18:47)
[2016-10-21] MEDS ORDERED: DIPHENHYDRAMINE 25 MG CAP PO PRN (19:00)
[2016-10-21] MEDS: traMADol 50 MG TAB PO PRN (20:54)
[2016-10-21] MEDS: LEVOFLOXACIN 500MG/D5W (PMX) 100 ML IVPB SCH (22:04)
[2016-10-22 02:00] VITALS: BP 120/67; RESP 16
[2016-10-22 05:38] LABS: BASOPHILS % 0.2 % (0.0-2.0); HEMATOCRIT 34.2 % (37.0-47.0); HEMOGLOBIN 11.5 g/dl (12.0-16.0); LYMPHOCYTES # 1.2 10^3/ul (0.8-2.9); LYMPHOCYTES % 20.2 % (15.0-51.0); MEAN CORPUSCULAR HEMOGLOBIN 30.2 pg (29.0-33.0); MEAN CORPUSCULAR HGB CONC 33.6 g/dl (32.0-37.0); MEAN CORPUSCULAR VOLUME 89.8 fl (82.0-101.0); MEAN PLATELET VOLUME 10.3 fl (7.4-10.4); MONOCYTE # 0.6 10^3/ul (0.3-0.9); MONOCYTES % 10.3 % (0.0-11.0); NEUTROPHIL # 4.2 10^3/ul (1.6-7.5); PLATELET COUNT 205 10^3/UL (140-415); RED BLOOD COUNT 3.81 10^6/ul (4.20-5.40); RED CELL DISTRIBUTION WIDTH 12.7 % (11.5-14.5); WHITE BLOOD COUNT 6.1 10^3/ul (4.8-10.8)
[2016-10-22 05:48] LABS: ALBUMIN 3.8 g/dl (3.3-4.9); ALBUMIN/GLOBULIN RATIO 1.02; BILIRUBIN,INDIRECT 0.5 mg/dl (0-1.1); BILIRUBIN,TOTAL 0.5 mg/dl (0.2-1.3); CALCIUM 8.8 mg/dl (8.4-10.2); CREATININE 0.57 mg/dl (0.44-1.00); POTASSIUM 4.1 mmol/L (3.5-5.1); TOTAL PROTEIN 7.5 g/dl (6.1-8.1)
[2016-10-22] MEDS: PANTOPRAZOLE (EC) 40 MG TAB PO SCH (05:55)
[2016-10-22 07:29] VITALS: BP 116/68; RESP 18
[2016-10-22] MEDS: DEXTROSE 5%-0.9% NACL 1,000 ML IV SCH (09:58)
[2016-10-22] MEDS: predniSONE 2.5 MG TAB PO SCH (09:59)
[2016-10-22] MEDS: HYDROXYCHLOROQUINE 200 MG TAB PO SCH (09:59)
--- NOTE | 2016-10-22 10:56 | CONS ---
Date/Time of Note Date/Time of Note DATE: 10/22/16 TIME: 10:54 Assessment/Plan Assessment/Plan Chief Complaint/Hosp Course 86-year-old female admitted to the [facility] for abdominal pain confined to the right upper quadrant associated with nausea and vomiting. No GI bleeding no chest pain no shortness of breath no fever no chills. Patient was originally at [facility] emergency room that she was stabilized. Patient was subsequently transferred to [facility]. She had MRI done which showed 4 7 mm stone in the bile duct so GI consult was called and patient also had abnormal LFT and continues to have pain in the right upper quadrant. There was no evidence of acute cholecystitis at this point Problems: Additional Assessment/Plan Additional Assessment/Plan 1. Bile duct stone 2. Abdominal pain secondary to bile duct stone 3. Abnormal LFT 4. Mild anemia 5. Rheumatoid arthritis 6. Status post sphincterotomy with excellent drainage 7. Status post laparoscopic cholecystectomy and liver biopsy Plan Advance diet Surgery lap ad as per surgeon. Patient definitely has a cholecystitis based on my ERCP finding cystic duct was completely blocked Continue postop care Review liver biopsy report Consultation Date/Type/Reason Admit Date/Time Oct 15, 2016 at 16:23 Initial Consult Date 10/16/16 Type of Consultation: surgical 24 HR Interval Summary Constitutional: improved Exam/Review of Systems Vital Signs Vitals Vital Signs Date Time Temp Pulse Resp B/P Pulse Ox O2 Delivery O2 Flow Rate FiO2 10/22/16 07:29 98.1 72 18 116/68 100 10/21/16 15:33 Room Air Intake and Output 10/21/16 10/21/16 10/22/16 15:00 23:00 07:00 Intake Total 700 ml 470 ml 1180 ml Output Total 20 ml Balance 680 ml 470 ml 1180 ml Exam Constitutional: alert, oriented, well developed Psych: nl mood/affect, no complaints Head: atraumatic, normocephalic Eyes: EOMI, PERRL, nl conjunctiva, nl lids, nl sclera ENMT: nl external ears & nose, nl lips & teeth, nl nasal mucosa & septum Neck: non-tender, supple Respiratory: clear to auscultation, normal air movement Cardiovascular: nl pulses, regular rate and rhythm Gastrointestinal: nl liver, spleen, non-tender, soft Musculoskeletal: nl extremities to inspection, nl gait and stance Extremities: normal pulses Neurological: BUSINESS SERVICES SALES REPRESENTATIVE II-XII intact, nl mental status, nl speech, nl strength Skin: nl turgor, No rash or lesions Lymph: nl lymph nodes Results Result Diagram: 10/22/16 0503 10/22/16 0503 Results 24 hrs Laboratory Tests Test 10/22/16 05:03 White Blood Count 6.1 # Red Blood Count 3.81 L Hemoglobin 11.5 L Hematocrit 34.2 L Mean Corpuscular Volume 89.8 Mean Corpuscular Hemoglobin 30.2 Mean Corpuscular Hemoglobin Concent 33.6 Red Cell Distribution Width 12.7 Platelet Count 205 Mean Platelet Volume 10.3 Neutrophils % 69.0 Lymphocytes % 20.2 Monocytes % 10.3 Eosinophils % 0.0 Basophils % 0.2 Nucleated Red Blood Cells % 0.0 Neutrophils # 4.2 Lymphocytes # 1.2 Monocytes # 0.6 Eosinophils # 0.0 Basophils # 0.0 Nucleated Red Blood Cells # 0.0 Sodium Level 143 Potassium Level 4.1 Chloride Level 100 Carbon Dioxide Level 30 Anion Gap 17 H Blood Urea Nitrogen 3 L Creatinine 0.57 Glucose Level 107 Calcium Level 8.8 Total Bilirubin 0.5 Direct Bilirubin 0.00 Indirect Bilirubin 0.5 Aspartate Amino Transf (AST/SGOT) 36 Alanine Aminotransferase (ALT/SGPT) 125 H Alkaline Phosphatase 85 Total Protein 7.5 Albumin 3.8 Globulin 3.70 H Albumin/Globulin Ratio 1.02 Medications Medications Current Medications Dextrose/Sodium Chloride (D5-NS) 1,000 ml @ 70 mls/hr [id number] IV Last administered on 10/22/16 09:58; Admin Dose 70 MLS/HR; Start 10/15/16 at 20:30 Ondansetron HCl (Zofran Inj) 4 mg Q4H PRN IV NAUSEA AND/OR VOMITING Last administered on 10/19/16 20:21; Admin Dose 4 MG; Start 10/15/16 at 20:30 Prednisone (Prednisone) 2.5 mg DAILY PO Last administered on 10/22/16 09:59; Admin Dose 2.5 MG; Start 10/16/16 at 09:00 Hydroxychloroquine Sulfate 200 mg 200 mg DAILY PO Last administered on 09:59; Admin Dose 200 MG; Start 10/16/16 at 09:00 Levofloxacin/ Dextrose (Levaquin 500mg/ D5W 100 ml (Pmx)) 100 ml @ 100 mls/hr Q24H IVPB Last administered on 10/21/16 22:04; Admin Dose 100 MLS/HR; Start at 22:30 Tramadol HCl (Ultram) 50 mg Q6H PRN PO PAIN Last administered on 10/21/16 20:54 ; Admin Dose 50 MG; Start 10/19/16 at 12:00 Morphine Sulfate (morphine) 2 mg Q4H PRN IV PAIN Last administered on 10/21/16 18:47; Admin Dose 2 MG; Start 10/19/16 at 20:30 Acetaminophen (Tylenol Tab) 500 mg Q6H PRN PO PAIN 1-5 AND OR ELEVATED TEMP; Start 10/21/16 at 15:30 Pantoprazole (Protonix Tab) 40 mg DAILY@06 PO Last administered on 10/22/16 05: 55; Admin Dose 40 MG; Start 10/21/16 at 17:00 Acetaminophen/ Hydrocodone Bitart ([place] (5/325)) 1 tab Q4H PRN PO Pain 6-10 Last administered on 10/22/16 00:07; Admin Dose 1 TAB; Start 10/21/16 at 15:30 Hydromorphone HCl (Dilaudid) 0.5 mg Q2 PRN IV Breakthrough PAIN; Start 10/21/16 at 15:30 Diphenhydramine HCl (Benadryl) 25 mg BID PRN PO Itchy Last administered on 19:08; Admin Dose 25 MG; Start 10/21/16 at 19:00 MAGALY VINSON MD Oct 22, 2016 10:56
--- NOTE | 2016-10-22 12:12 | QN ---
Documentation Comment [id number] PEARL SEAMAN MD Oct 22, 2016 12:12
--- NOTE | 2016-10-22 12:25 | PDOCDIS ---
Discharge Instructions CONDITION Patient Condition: Stable HOME CARE INSTRUCTIONS: Diet Instructions: Low Fat /Cholesterol ACTIVITY: Activity Restrictions: Slowly Increase Activity FOLLOW UP/APPOINTMENTS Follow-up Plan see own pcp [address] stuart [address] long 2 wks PEARL SEAMAN MD Oct 22, 2016 12:25
[2016-10-22] MEDS ORDERED: TRAM50TA2 PO (12:26)
[2016-10-22] MEDS ORDERED: PANT40TA3 PO (12:26)
--- NOTE | 2016-10-22 12:52 | HP ---
DATE OF ADMISSION: 10/15/2016 HISTORY OF PRESENT ILLNESS: Patient was transferred from [facility] with abdominal pain. Noted to have abnormal LFTs and possibility of common bile duct dilatation. Patient once presented laboratory data was reviewed. H and P was done but the first H and P is missing. Patient has no history of diabetes mellitus, hypertension. PAST MEDICAL HISTORY: Possible history of rheumatoid arthritis. ALLERGIES: SULFA, AMOXICILLIN, MORPHINE. SOCIAL HISTORY: Negative. FAMILY HISTORY: neg MEDICATIONS: At home, reported as calcium carbonate, Plaquenil, ibuprofen, prednisone, Enbrel. REVIEW OF SYSTEMS: HEENT: Unremarkable. RESPIRATORY: Unremarkable. CARDIOVASCULAR: Unremarkable. GASTROINTESTINAL: Complaining of upper abdominal pain and nausea. Poor p.o. intake. EXTREMITIES: Unremarkable. NEUROLOGIC: Unremarkable. PHYSICAL EXAMINATION: GENERAL APPEARANCE: Patient is awake and alert. VITAL SIGNS: Blood pressure 126/60. HEENT: Head is atraumatic, normocephalic. Pupils equal reactive to light. NECK: Supple. There is no JVD. LUNGS: Clear. CARDIAC: S1, S2 normal. ABDOMEN: Soft. Bowel sounds positive. No palpable mass or hepatosplenomegaly. No guarding, rebound, tenderness. EXTREMITIES: There is no cyanosis, clubbing or edema. NEUROLOGIC: Patient is awake, alert, no focal deficits. DATA: Reviewed. Hematocrit 34.8, WBC 3.9. Sodium 141, potassium 3.8. Abnormal LFTs noted. BUN see lab creatinine 1.30 IMPRESSION: 1. Cholelithiasis. 2. Cholecystitis. 3. Abnormal LFTs. 4. Possible common bile duct stone. 5. Patient has history of rheumatoid arthritis. PLAN: Keep her and provide antibiotic and pain medications and GI consultation, surgical consult. Patient's orders were done. This is the second history and physical for this patient. Dictated By: Kiel Patterson MD /[email or web address]/[email or web address] /Document#: [id number] [place]
[2016-10-22 14:43] VITALS: BP 118/74; RESP 18
== END 2016-10-22 16:25 | disposition home or self-care (01) | DRG 417 ==
LOC: MS2 16:23
PROVIDERS: ADMIT Internal Medicine Nephrology; ATTEND Internal Medicine Nephrology
PROC: 0FC98ZZ Extirpation of Matter from Common Bile Duct, Via Natural or Artificial Opening Endoscopic (ICD-10-PCS; 2016-10-17)
PROC: BF10YZZ Fluoroscopy of Bile Ducts using Other Contrast (ICD-10-PCS; 2016-10-17)
PROC: 0FB04ZX Excision of Liver, Percutaneous Endoscopic Approach, Diagnostic (ICD-10-PCS; 2016-10-21)
PROC: 0FT44ZZ Resection of Gallbladder, Percutaneous Endoscopic Approach (ICD-10-PCS; principal; 2016-10-21 12:30)
DX: K80.40 Calculus of bile duct with cholecystitis, unspecified, without obstruction (principal); K85.10 Biliary acute pancreatitis without necrosis or infection; E66.3 Overweight; Z68.27 Body mass index [BMI] 27.0-27.9, adult; E83.51 Hypocalcemia; D64.9 Anemia, unspecified; M06.9 Rheumatoid arthritis, unspecified; K76.9 Liver disease, unspecified
CPT/HCPCS: 74181; 74330; 80048; 80053; 80076; 82150; 83690; 85025; 85610; 85730; 88304; 88307; 88313; C9113; J0131; J0744; J1100; J1170; J1200; J1720; J1956; J2250; J2270; J2405; J2710; J3010; J7042; J7512; Q9967

== ENCOUNTER 2018-09-17 12:08 | Emergency (ER) | payer SELFPAY ==
[~2018-09-17] VITALS: Ht 162.6 cm; Wt 90.2 kg
[~2018-09-17 12:08] MED LIST: CALC500T91 PO; HYDR200T5 PO; IBUP-1982 PO; PANT40TA3 PO; PRED2.5T3 PO; TRAM50TA2 PO; enbrel
[2018-09-17 12:22] VITALS: BP 123/58; PULSE 85; RESP 16; Ht 162.6 cm; Wt 90.2 kg
[2018-09-17] MEDS ORDERED: ONDA8TAB14 PO (14:57)
[2018-09-17] MEDS ORDERED: BISM262O23 PO (14:57)
[2018-09-17] MEDS ORDERED: AZIT500T3 PO (14:57)
--- NOTE | 2018-09-17 15:01 | ERD ---
ER Documentation Chief Complaint Chief Complaint pt bib self with c/o abd pain and diarrhea for a few wks, HPI 28-year-old female presents with approximate 3-week history of nausea and diar kade. She has had a couple episodes of vomiting after eating nonbilious nonbloody. Diarrhea is watery without blood or mucus. Patient denies any foreign travel, suspect food and has no other sick contacts or household members with similar symptoms. Patient has an IUD and denies although does not have menstrual periods. ROS All systems reviewed and are negative except as per history of present illness. Medications Home Meds Active Scripts Bismuth Subsalicylate* (Pepto-Bismol*) 262 Mg/15 Ml Oral.susp, 15 ML PO Q3H PRN for DIARRHEA for 4 Days, ML Prov:AUDREY TERRY MD 09/17/18 Ondansetron (Ondansetron Odt) 8 Mg Tab.rapdis, 8 MG PO Q6H PRN for NAUSEA AND/OR VOMITING, #6 TAB Prov:AUDREY TERRY MD 09/17/18 Azithromycin* (Zithromax*) 500 Mg Tablet, 500 MG PO DAILY for 3 Days, TAB Prov:AUDREY TERRY MD 09/17/18 Pantoprazole* (Protonix*) 40 Mg Tablet.dr, 40 MG PO DAILY for 28 Days, TAB Prov:PEARL SEAMAN MD 10/22/16 Tramadol HCl (Tramadol HCl) 50 Mg Tablet, 50 MG PO Q6H PRN for PAIN for 10 Days, #20 TAB Prov:PEARL SEAMAN MD 10/22/16 Reported Medications [enbrel] No Conflict Check, q week 10/16/16 Ibuprofen* (Ibuprofen*) 200 Mg Capsule, 200 MG PO PRN for PAIN, CAP 10/16/16 Hydroxychloroquine Sulfate* (Plaquenil*) 200 Mg Tab, 200 MG PO DAILY, TAB 10/16/16 Calcium Carbonate ([id number]) 500 Mg Tablet, 500 MG PO DAILY, TAB 10/16/16 Prednisone* (Prednisone*) 2.5 Mg Tablet, 2.5 MG PO DAILY, TAB 10/16/16 Allergies Allergies: Coded Allergies: Sulfa (Sulfonamide Antibiotics) (Verified Allergy, Unknown, 10/17/16) amoxicillin (Verified Allergy, Unknown, 10/17/16) morphine (Verified Allergy, Unknown, RASH,REDNESS, 10/22/16) PMhx/Soc History of Surgery: No Anesthesia Reaction: No Hx Neurological Disorder: No Hx Respiratory Disorders: No Hx Cardiac Disorders: No Hx Psychiatric Problems: No Hx Miscellaneous Medical Probl: No Hx Alcohol Use: Yes (social) Hx Substance Use: No Hx Tobacco Use: No Smoking Status: Never smoker FmHx Family History: No diabetes, No coronary disease, No other Physical Exam Vitals Vital Signs Date Temp Pulse Resp B/P (MAP) Pulse Ox O2 O2 Flow FiO2 Time Delivery Rate 09/17/18 98.8 85 16 123/58 100 12:22 (79) Physical Exam Const: No acute distress Head: Atraumatic Eyes: Normal Conjunctiva ENT: Normal External Ears, Nose and Mouth. Neck: Full range of motion. No meningismus. Resp: Clear to auscultation bilaterally Cardio: Regular rate and rhythm, no murmurs Abd: Soft, non tender, non distended. Normal bowel sounds Skin: No petechiae or rashes Back: No midline or flank tenderness Ext: No cyanosis, or edema Neur: Awake and alert Psych: Normal Mood and Affect Results 24 hrs Laboratory Tests Test 09/17/18 14:13 09/17/18 14:15 POC Beta HCG, Qualitative NEGATIVE Bedside Urine pH (LAB) 6.0 Bedside Urine Protein (LAB) 1+ Bedside Urine Glucose (UA) Negative Bedside Urine Ketones (LAB) Negative Bedside Urine Blood Trace-intact Bedside Urine Nitrite (LAB) Negative Bedside Urine Leukocyte Esterase (L 1+ Procedures/MDM hCG is negative. Urine shows trace leukocyte esterase. Patient is well-appearing without significant signs of abdominal pain, ill appearance, sepsis, additional concerning signs or symptoms. Patient presents with nausea and intermittent diarrhea for last 3 weeks. We will treat empirically with Zithromax, Pepto-Bismol, Zofran, further observation at home and return precautions. Currently doubt appendicitis, and subsequent signs or symptoms of surgical abdomen, additional concerning signs or symptoms. The patient was stable with no new complaints during the ER course. Clinically, there is no current evidence to suggest meningitis, sepsis, acute abdomen, pneumonia, stroke, acute coronary syndrome, pulmonary embolism, aortic dissection or any other emergent condition appearing to require further evaluation or hospitalization. Patient counseled regarding my diagnostic impression and care plan. Prior to discharge all questions answered. Pt agrees with treatment plan and understands strict return precautions. Pt is instructed to follow up with primary care provider within 24-48 hours. Precautionary instructions provided including instructions to return to the ER if not improving or for any worsening or changing symptoms or concerns. Disclaimer: Inadvertent spelling and grammatical errors are likely due to EHR/dictation software use and do not reflect on the overall quality of patient care. Also, please note that the electronic time recorded on this note does not necessarily reflect the actual time of the patient encounter. Departure Diagnosis: Primary Impression: Nausea, vomiting and diarrhea Condition: Stable Patient Instructions: Vomiting And Diarrhea, Nonspecific (Adult) Additional Instructions: We will treat for infection given duration of symptoms. Recheck for fevers, worsening pain, blood, new or worsening symptoms. AUDREY TERRY MD Sep 17, 2018 15:01
== END 2018-09-17 15:05 | disposition home or self-care (01) ==
LOC: FTE 12:08
DX: R11.2 Nausea with vomiting, unspecified (principal); R19.7 Diarrhea, unspecified
CPT/HCPCS: 81003; 81025; 99283